=== PATIENT | male | born 1970 | race Two or more races ===

== ENCOUNTER 2024-03-04 17:17 | Emergency (ER) | payer MEDICAID ==
[~2024-03-04] VITALS: Ht 152.4 cm; Wt 85.5 kg
[2024-03-04 20:18] VITALS: BP 124/85; PULSE 63; RESP 16; TEMP 98.2; O2SAT 97
[2024-03-04] MEDS: KETOROLAC TROMETH 60MG/2ML VIAL IM ONE (20:24)
== END 2024-03-04 23:38 | disposition home or self-care (01) ==
LOC: ER 17:17
DX: S16.1XXA Strain of muscle, fascia and tendon at neck level, initial encounter (principal); S13.4XXA Sprain of ligaments of cervical spine, initial encounter; V89.2XXA Person injured in unspecified motor-vehicle accident, traffic, initial encounter; Y93.I9 Activity, other involving external motion; Y92.89 Other specified places as the place of occurrence of the external cause; Y99.8 Other external cause status
CPT/HCPCS: 72040; 72070; 96372; 99284; J1885

== ENCOUNTER 2025-01-08 15:24 | Emergency (ER) | payer MEDICAID ==
[~2025-01-08] VITALS: Ht 172.7 cm; Wt 87.3 kg
--- NOTE | 2025-01-08 16:11 | ED.PDOC ---
Eye-HPI HPI Comments 54 y/o M, with no prior medical history presents to the ED for CC of earache. Patient states, he has been experiencing left ear pain x3days. Patient denies trauma, hearing loss, discharge, or sore-throat. No other symptoms or modifying factors present at this time. Chief Complaint: Earache Time Seen by MD: 15:50 Primary Care Provider: NONE Reviewed Notes: Nurses Notes, Medications, Allergies Allergies: Coded Allergies: NO KNOWN ALLERGIES (Unverified , 06/11/16) Information Source: Patient Mode of Arrival: Ambulatory Timing: Days Duration: Since onset Prehospital treatment: None Lids: Normal Conjunctiva: Normal Cornea: Normal Pupils: Normal EOM: Normal Fundus: Normal Slit lamp exam: Normal Anterior chamber: Normal Mouth: Normal ENT Ear Exam: Normal Nose: Normal Sinuses: Normal Oropharynx: Normal Onset: Spontaneous Throat Exposed to: None History of: None Last Tetanus: Unknown Associated signs and symptoms: None Past Medical History PAST MEDICAL HISTORY: Denies Surgical History: Denies all surgeries Social History Smoker: Non-Smoker Alcohol: Denies ETOH Use Drugs: Denies Drug Use Lives In: Home Constitutional: denies: chills, diaphoresis, fatigue, fever, malaise, sweats, w eakness, others EENTM: reports: ear pain; denies: blurred vision, double vision, ear bleeding, ear discharge, ear drainage, ear ringing, eye pain, eye redness, hearing loss, mouth pain, mouth swelling, nasal discharge, nose bleeding, nose congestion, nose pain, photophobia, tearing, throat pain, throat swelling, voice changes, others Respiratory: denies: cough, hemoptysis, orthopnea, SOB at rest, shortness of breath, SOB with excertion, stridor, wheezing, others Cardiovascular: denies: chest pain, dizzy spells, diaphoresis, Dyspnea on exertion, edema, irregular heart beat, left arm pain, lightheadedness, palpitations, PND, syncope, others Gastrointestinal: denies: abdomen distended, abdominal pain, blood streaked bowels, constipated, diarrhea, dysphagia, difficulty swallowing, hematemesis, melena, nausea, poor appetite, poor fluid intake, rectal bleeding, rectal pain, vomiting, others Genitourinary: denies: burning, dysuria, flank pain, frequency, hematuria, incontinence, penile discharge, penile sore, pain, testicle pain, testicle swelling, urgency, others Neurological: denies: dizziness, fainting, headache, left sided numbness, left sided weakness, numbness, paresthesia, pre-existing deficit, right sided numbness, right sided weakness, seizure, speech problems, tingling, tremors, weakness, others Musculoskeletal: denies: back pain, gout, joint pain, joint swelling, muscle pain, muscle stiffness, neck pain, others Integumetry: denies: bruises, change in color, change in hair/nails, dryness, laceration, lesions, lumps, rash, wounds, others Allergic/Immunocompromised: denies: Difficulty Healing, Frequent Infections, Hives, Itching, others Hematologic/Lymphatic: denies: anemia, blood clots, easy bleeding, easy bruising, swollen glands, others Endocrine: denies: excessive hunger, excessive sweating, excessive thirst, excessive urination, flushing, intolerance to cold, intolerance to heat, unexplained weight gain, unexplained weight loss, others Psychiatric: denies: anxiety, bipolar disorder, depression, hopeless, panic disorder, schizophrenia, sleepless, suicidal, others All Other Systems: Reviewed and Negative Physical Exam General Appearance: Mild Distress HEENT: Normal ENT Inspection, PERRL/EOMI, Pharyngeal Erythema, Other (Cerumen both ears pain left mastoid) Neck: Full Range of Motion, Non-Tender, Normal, Normal Inspection Respiratory: Chest Non-Tender, Lungs Clear, No Accessory Muscle Use, No Respiratory Distress, Normal Breath Sounds Cardiovascular: No Edema, No JVD, No Murmur, No Gallop, Normal Peripheral Pulses, Regular Rate/Rhythm Breast Exam: Deferred Gastrointestinal: No Organomegaly, Non Tender, No Pulsatile Mass, Normal Bowel Sounds, Soft Genitalia: Deferred Pelvic: Deferred Rectal: Deferred Extremities: No calf tenderness, Normal capillary refill, Normal inspection, Normal range of motion, Non-tender, No pedal edema 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 Was a procedure done?: No EENT DIFF Eye: N/A Ear: Cerumen Impaction, Otitis Externa, Otitis Media, Other (Mastoiditis) Nose: N/A Mouth: N/A Sore Throat: N/A X-Ray, Labs, Meds, VS Vital Signs Date Time Temp Pulse Resp B/P (MAP) Pulse Ox O2 Delivery O2 Flow Rate FiO2 01/08/25 16:30 98.9 89 16 140/92 (108) 96 98.9 X-Ray, Labs, Meds, VS Comment 54-year-old male came in complaining left ear pain and neck pain Patient has cerumen impaction to both ears and exquisite pain to the left mastoid Time of 1ST Reevaluation: 15:20 Reevaluation 1ST: Unchanged Patient Education/Counseling: Diagnosis, Treatment Family Education/Counseling: No Family Present Departure 1 Departure Time of Disposition: 17:50 Impression: Primary Impression: Impacted cerumen of both ears Additional Impression: Acute mastoiditis of left side Disposition: 01 HOME / SELF CARE / HOMELESS Condition: Fair Additional Instructions: Follow up with your PCP e-Prescriptions Carbamide Peroxide (Debrox) 6.5 % Zeynep 6.5 % OT TID for 5 Days, #5 ML Prov: PERFECTO GALEAS MD 01/08/25 Ibuprofen Micronized (Ibuprofen) 600 Mg Tab 600 MG PO q8 for 5 Days, #15 TAB Prov: PERFECTO GALEAS MD 01/08/25 Cefdinir (Cefdinir) 300 Mg Cap 1 CAP PO BID for 10 Days, #20 CAP Prov: PERFECTO GALEAS MD 01/08/25 Discharged With: Self Critical Care Note Critical Care Time?: No Stability Stability form required: No Heart Score Heart Score: Heart Score Response (Comments) Value History N/A 0 EKG N/A 0 Age 45-64 1 Risk Factors No known risk factors 0 Troponin N/A 0 Total 1 I personally scribed for PERFECTO GALEAS MD ([email or web address]) on 01/08/25 at 16:11. Electronically submitted by Debbie Torres ([email or web address]). PERFECTO GALEAS MD Jan 08, 2025 16:11
[2025-01-08 16:30] VITALS: TEMP 98.9
[2025-01-08] MEDS ORDERED: IBUP1TAB5 PO (17:55)
[2025-01-08] MEDS ORDERED: CARB6.5S44 OT (17:55)
[2025-01-08] MEDS ORDERED: CEFD300C2 PO (17:55)
[2025-01-08 18:13] VITALS: BP 131/80; PULSE 64; RESP 16; O2SAT 97
== END 2025-01-08 18:14 | disposition home or self-care (01) ==
LOC: ER 15:24
DX: H61.23 Impacted cerumen, bilateral (principal); H70.002 Acute mastoiditis without complications, left ear

== ENCOUNTER 2025-06-07 17:26 | Inpatient (IN) | payer MEDICAID ==
[~2025-06-07] VITALS: Ht 157.5 cm; Wt 88.5 kg
[~2025-06-07 17:26] MED LIST: CARB6.5S44 OT; CEFD300C2 PO; IBUP1TAB5 PO
--- NOTE | 2025-06-07 19:14 | ED.PDOC ---
History of Present Illness HPI Comments 54-year-old male presents to the emergency department complaining of 1 month of rectal pain which has worsened over the past 3 days. Patient reports some constipation. Denies hematochezia or melena. No fever or chills. Patient was started on ibuprofen as well as hydrocortisone suppositories with no relief of his pain. REVIEW OF SYSTEMS: General: No fever, no chills, HEENT: No neck pain, no blurred vision Cardiac: No chest pain. No palpitations. Lungs: No shortness of breath, GI: No abdominal pain, no vomiting, positive constipation, positive rectal pain Musculoskeletal: No joint pain , no back pain Skin: No rash, no wound Neuro: No headache, no dizziness, no syncope PHYSICAL EXAM: General: Awake, alert and oriented. No acute distress. Skin: Skin in warm, dry and intact without rashes or lesions. HEENT: The head is normocephalic and atraumatic. Conjunctivae are clear without exudates or hemorrhage. Sclera is non-icteric. Neck: Normal range of motion. No JVD. Cardiac: Regular rate Respiratory: No signs of respiratory distress. No Stridor. : Perianal induration, tenderness, anal swelling. No noted hemorrhoid or re ctal bleeding. Neurological: The patient is awake, alert and oriented to person, place, and time with normal speech. Speech is clear. There is no facial asymmetry. Psychiatric: Appropriate mood and affect. Good judgement and insight. Chief Complaint: Rectal Pain Time Seen by MD: 18:13 Primary Care Provider: FAN Allergies: Coded Allergies: NO KNOWN ALLERGIES (Unverified , 06/11/16) Home Meds Active Scripts Carbamide Peroxide (Debrox) 6.5 % Zeynep, 6.5 % OT TID for 5 Days, #5 ML Prov:PERFECTO GALEAS MD 01/08/25 Ibuprofen Micronized (Ibuprofen) 600 Mg Tab, 600 MG PO q8 for 5 Days, #15 TAB Prov:PERFECTO GALEAS MD 01/08/25 Cefdinir (Cefdinir) 300 Mg Cap, 1 CAP PO BID for 10 Days, #20 CAP Prov:PERFECTO GALEAS MD 01/08/25 Mode of Arrival: Ambulatory Past Medical History PAST MEDICAL HISTORY: Denies Surgical History: Denies all surgeries Social History Smoker: Non-Smoker Alcohol: Denies ETOH Use Drugs: Denies Drug Use Lives In: Home Was a procedure done? Was a procedure done?: No Differential Dx Considerations may include: Perianal abscess, hemorrhoids, tumor/mass, constipation, enlarged prostate, anal fissure, other X-Ray, Labs, Meds, VS Vital Signs Date Time Temp Pulse Resp B/P (MAP) Pulse Ox O2 Delivery O2 Flow Rate FiO2 06/07/25 20:21 Room Air* 0 21 06/07/25 20:18 125 20 123/78 (93) 97 06/07/25 20:12 125 20 123/78 06/07/25 17:30 97.8 122 16 146/93 95 97.8 Lab Test 06/07/25 19:14 Range/Units White Blood Count 12.3 H 4.4-10.8 10^3/uL Red Blood Count 4.87 4.5-5.90 10^6/uL Hemoglobin 15.4 13.5-17.5 g/dL Hematocrit 44.6 41.0-53.0 % Mean Corpuscular Volume 91.5 80.0-100.0 fL Mean Corpuscular Hemoglobin 31.5 28.0-32.0 pg Mean Corpuscular Hemoglobin Concent 34.4 32.0-36.0 g/dL Red Cell Distribution Width 12.5 11.8-14.3 % Platelet Count 377 140-450 10^3/uL Mean Platelet Volume 7.0 6.9-10.8 fL Neutrophils (%) (Auto) 85.7 H 37.0-80.0 % Lymphocytes (%) (Auto) 6.2 L 10.0-50.0 % Monocytes (%) (Auto) 7.4 0.0-12.0 % Eosinophils (%) (Auto) 0.4 0.0-7.0 % Basophils (%) (Auto) 0.3 0.0-2.0 % Neutrophils # (Auto) 10.6 H 1.6-8.6 10 ^3/uL Lymphocytes # (Auto) 0.8 0.4-5.4 10 ^3/uL Monocytes # (Auto) 0.9 0-1.3 10 ^3/uL Eosinophils # (Auto) 0 0-0.8 10 ^3/uL Basophils # (Auto) 0 0-0.2 10 ^3/uL Nucleated Red Blood Cells 0.0 % Sodium Level 141 136-145 mmol/L Potassium Level 3.6 3.5-5.1 mmol/L Chloride Level 101 98-107 mmol/L Carbon Dioxide Level 26 20-31 mmol/L Anion Gap 14 5-15 Blood Urea Nitrogen 15 9-23 mg/dL Creatinine 1.11 0.700-1.30 mg/dL Glomerular Filtration Rate Calc 78 >90 mL/min BUN/Creatinine Ratio 13.5 10.0-20.0 Serum Glucose 117 H 74-106 mg/dL Lactic Acid Level 1.5 0.4-2.0 mmol/L Calcium Level 9.7 8.7-10.4 mg/dL C-Reactive Protein High Sensitivity 15.67 H <1.0 mg/dL Current Medications Medications (Trade) Dose Ordered Sig/Giulia Route Start Time Stop Time Status Last Admin Ketorolac Tromethamine (Toradol Injection) 30 mg ONCE ONCE IV 06/07/25 19:00 06/07/25 19:04 DC 06/07/25 20:17 Morphine Sulfate 2 mg ONCE ONCE IV 06/07/25 19:00 06/07/25 19:04 DC 06/07/25 20:12 Time of 1ST Reevaluation: 19:11 Reevaluation 1ST: Unchanged Patient Education/Counseling: Need For Follow Up Family Education/Counseling: No Family Present SEPSIS Sepsis Screen Date sepsis recognized/suspect: Jun 07, 2025 Time Sepsis recognized/suspect: 1732 Recent Procedure: No On Antibiotic Therapy: No Respiratory Rate >20: No Heart Rate >90: Yes Temp<36 C (96.8 F) or >38.3 C: No SBP <90 or MAP <65 mmHG: No New Acute Mental Status Change: No Is the patient on CPAP, BIPAP,: No Physician Orders Saline Lock (06/07/25 19:00) Ct Ab Pel With Iv Con Only (06/07/25 19:00) Vital Signs Date Time Temp Pulse Resp B/P (MAP) Pulse Ox O2 Delivery O2 Flow Rate FiO2 06/07/25 20:21 Room Air* 0 21 06/07/25 20:18 125 20 123/78 (93) 97 06/07/25 20:12 125 20 123/78 06/07/25 17:30 97.8 122 16 146/93 95 97.8 Laboratory Tests Test 06/07/25 19:14 Lactic Acid Level 1.5 mmol/L (0.4-2.0) White Blood Count 12.3 10^3/uL (4.4-10.8) H Medications Medications Dose Ordered Sig/Giulia Route Start Time Stop Time Status Last Admin Dose Admin Ketorolac Tromethamine 30 mg ONCE ONCE IV 06/07/25 19:00 06/07/25 19:04 DC 06/07/25 20:17 Morphine Sulfate 2 mg ONCE ONCE IV 06/07/25 19:00 06/07/25 19:04 DC 06/07/25 20:12 Departure 1 Departure Time of Disposition: 21:29 Impression: Primary Impression: Perianal abscess Disposition: ADMITTED INPATIENT Condition: Stable Comments MDM: 54-year-old male with a perianal abscess Antibiotics initiated in the ED Patient is stabilized in the ED Patient admitted to hospitalist service for surgical consultation, further treatment, evaluation and monitoring. Extensive evaluation was performed in attempt to identify or rule out: (See differential diagnosis section) The following tests were ordered, and results were reviewed by me and discussed with patient: (See diagnostic results section) The following test were independently interpreted by me: N/A I reviewed and agreed with the following test results read by other providers: CT abdomen and pelvis I reviewed the following notes from the pt's past medical encounters: N/A Additional information was gathered from interviewing the following independent historians: N/A Discussion of management or test interpretation with external physician/other qualified health care associate: N/A Addressed an acute or chronic illness that poses a threat to life or bodily function: Perianal abscess Decision regarding hospitalization or escalation of hospital level of care: Risk and benefits of admission for further treatment of patient's condition was considered. Due to patient's current clinical condition, high risk of decline and poor outcome if discharged and need for further inpatient management and monitoring, patient will be admitted to the hospital. Drug therapy requiring intensive monitoring for toxicity: IV contrast Parenteral controlled substances: IV morphine Decision regarding elective major surgery with identified patient or procedure risk factors: Yes Critical Care Note Critical Care Time?: No Stability Stability form required: No Heart Score Heart Score: Heart Score Response (Comments) Value History N/A 0 EKG N/A 0 Age N/A 0 Risk Factors N/A 0 Troponin N/A 0 Total 0 TAYLOR IBRAHIM MD Jun 07, 2025 19:14
[2025-06-07 19:39] LABS: Hematocrit 44.6 % (41.0-53.0); Hemoglobin 15.4 g/dL (13.5-17.5); Mean Corpuscular Hemoglobin 31.5 pg (28.0-32.0); Mean Corpuscular Volume 91.5 fL (80.0-100.0); Nucleated Red Blood Cells % 0.0 %
[2025-06-07 19:48] LABS: Chloride 101 mmol/L (98-107); Potassium 3.6 mmol/L (3.5-5.1); Sodium 141 mmol/L (136-145)
[2025-06-07 19:49] LABS: Anion Gap 14 (5-15); Carbon Dioxide 26 mmol/L (20-31)
[2025-06-07 19:50] LABS: Calcium 9.7 mg/dL (8.7-10.4)
[2025-06-07 19:54] LABS: BUN/Creatinine Ratio 13.5 (10.0-20.0); Blood Urea Nitrogen 15 mg/dL (9-23)
[2025-06-07 19:59] LABS: Glucose 117 mg/dL (74-106)
[2025-06-07] MEDS: MORPHINE SULFATE INJ 2 MG/ml SYRG IV ONE (20:12)
[2025-06-07] MEDS: KETOROLAC TROMETH 30 MG/ML 1ML VIAL IV ONE (20:17)
[2025-06-07] MEDS: IOHEXOL 300 MG/ML 100ML BOTTLE IJ ONE (21:16)
--- NOTE | 2025-06-07 21:20 | DVH ---
COMPUTERIZED TOMOGRAPHY ABDOMEN AND PELVIS WITH CONTRAST REASON FOR EXAM: Rectal pain, constipation, include entire anus COMPARISON: None TECHNIQUE: The exam was performed on a Multidetector scanner. Spiral scans were acquired from the diaphragm to the symphysis pubis after administration of IV contrast. 2-D coronal and sagittal reformatted images were provided. Radiation optimization: All CT scans at this facility use at least one of these dose optimization techniques: Automated exposure control mA and/or kV adjustment per patient size (includes targeted exams where dose is matched to clinical indication) or iterative reconstruction. CONTRAST ADMINISTRATION: 100 mL omnipaque 300 intravenously RADIATION DOSE: CTDI: 18.01 mGy DLP: 2101.98 mGy-cm FINDINGS: Respiratory motion degrades evaluation. There is no pleural effusion. There is no pericardial effusion. The spleen is not enlarged. The liver is normal in size and contour. Evaluation is further degraded by streak artifact from the patient's right arm. The portal vein is patent. No gross abnormality of the gallbladder is identified. No gross abnormality of the pancreas is identified. The adrenal glands are grossly unremarkable. The kidneys are similar in size. The kidneys enhance symmetrically. There is no hydronephrosis of either kidney. There is no abdominal aortic aneurysm. The urinary bladder is unremarkable. The prostate and seminal vesicles are within normal limits. No free fluid is identified in the abdomen or pelvis. The colonic stool burden is overall small to moderate. The appendix is normal. There is no distention of the small bowel. No pathologic lymphadenopathy is identified by size criteria. There is an approximately 2.9 x 2.4 x 3.1 cm perianal abscess that involves approximately the posterior half of the anal sphincter. The abscess may insinuate between the internal and external anal sphincters at approximately 6:00 according to the clock face in lithotomy position. There is a single tiny focus of gas within the abscess. No acute osseous abnormality is identified. IMPRESSION: Posterior perianal abscess as described above.
[2025-06-07] MEDS: SODIUM CHLORIDE 0.9% 1,000 ML IV ONE ×3 (21:57→23:25)
[2025-06-07] MEDS: PIPERACILLIN-TAZOB 3.375GM 100 ML IV ONE (22:02)
--- NOTE | 2025-06-07 22:38 | DVHHPRES ---
History of Present Illness Resident Creating Document: HERBER DEL REAL History of Present Illness Patient is a Slovenian-speaking 54-year-old male with past medical history of hyperlipidemia, GERD, presented to [facility] ED with complaint of rectal pain for the past month. The pain is described as sharp, 10/10 in intensity, and has been persistent since onset. The patient reports that he cannot sit for long periods due to the pain. He also notes severe constipation for the past four days. He denies hematochezia, melena, fever, or chills. On evaluation in the ED, patient is afebrile, tachycardic, other vitals are stable. Initial labs show significant WBC 12.3, serum glucose 117 and CRP 15.67. Abdominal CT shows an approximately 2.9 x 2.4 x 3.1 cm perianal abscess that involves approximately the posterior half of the anal sphincter. The patient was placed NPO, started on IV antibiotics and IV fluids. Patient is admitted for further evaluation and management. Cardiovascular: hyperipidemia GI: GERD Past Surgical History: None Family History: None Smoke: No ALCOHOL: none Drugs: None Review of Systems Review of Systems Eyes: No Pain, No Vision change, No Conjunctivae inflammation, No Eyelid inflammation, No Other, No Redness ENT: No Ear pain, No Ear discharge, No Nose pain, No Nose discharge, No Nose congestion, No Mouth pain, No Mouth swelling, No Throat pain, No Throat swelling, No Other Cardiovascular: No Chest Pain, No Palpitations, No Orthopnea, No Paroxysmal No Dyspnea, No Edema, No Lt Headedness, No Other Respiratory: No Cough, No Dry, No Shortness of breath, No SOB with exertion, No Wheezing, No Hemoptysis, No Pleuritic Pain, No Sputum, No Other Gastrointestinal: No Nausea, No Vomiting, No Abdominal Pain, No Diarrhea, Constipation, No Melena, No Hematochezia, No Other Genitourinary: Anal pain. No Dysuria, No Frequency, No Incontinence, No Hematuria, No Retention, No Other Musculoskeletal: No other, No neck pain, No shoulder pain, No arm pain, No back pain, No hand pain, No leg pain, No foot pain Skin: No Rash, No Lesions, No Jaundice, No Bruising, No Other Allergies: Coded Allergies: NO KNOWN ALLERGIES (Unverified , 06/11/16) Exam Vital Signs Vital Signs Date Time Temp Pulse Resp B/P (MAP) Pulse Ox O2 Delivery O2 Flow Rate FiO2 06/07/25 20:21 Room Air* 0 21 06/07/25 20:18 125 20 123/78 (93) 97 06/07/25 17:30 97.8 97.8 Exam General Appearance: Mild to moderate distress. Well developed. Well nourished. NAD Head Exam: Normal inspection Neck Exam: Normal inspection. Non-tender. Normal alignment Pulmonary/Respiratory: Chest non-tender. Clear bilateral breath sounds, no crackles, no wheezing. Cardiovascular/Chest: Regular rate and rhythm. No murmurs. No JVD. Peripheral Pulses: 2+ Radial (R). 2+ Radial (L). 2+ Pedal (R). 2+ Pedal (L) Abdominal Exam: Abdominal distension. Normal bowel sounds. Soft. normal abdomen, no visible veins, Nontender. No hepatospenomegaly. No masses Ankle Exam: Negative ankle edema Lower extremities: Negative lower extremity edema Neuro/Mental Status: A&O x4. Coherent. Thoughts/Psych: Normal thought pattern. Appropriate mood and affect. Good judgement and insight Skin Exam: Normal inspection. Normal color. Warm. Dry /Perianal: Perianal induration and tenderness noted with visible anal swelling. No external hemorrhoids or rectal bleeding observed. Rectal Exam: Palpable mass present with associated tenderness. No active bleeding or drainage. Labs/Xrays Labs Test 06/07/25 19:14 Range/Units White Blood Count 12.3 H 4.4-10.8 10^3/uL Red Blood Count 4.87 4.5-5.90 10^6/uL Hemoglobin 15.4 13.5-17.5 g/dL Hematocrit 44.6 41.0-53.0 % Mean Corpuscular Volume 91.5 80.0-100.0 fL Mean Corpuscular Hemoglobin 31.5 28.0-32.0 pg Mean Corpuscular Hemoglobin Concent 34.4 32.0-36.0 g/dL Red Cell Distribution Width 12.5 11.8-14.3 % Platelet Count 377 140-450 10^3/uL Mean Platelet Volume 7.0 6.9-10.8 fL Neutrophils (%) (Auto) 85.7 H 37.0-80.0 % Lymphocytes (%) (Auto) 6.2 L 10.0-50.0 % Monocytes (%) (Auto) 7.4 0.0-12.0 % Eosinophils (%) (Auto) 0.4 0.0-7.0 % Basophils (%) (Auto) 0.3 0.0-2.0 % Neutrophils # (Auto) 10.6 H 1.6-8.6 10 ^3/uL Lymphocytes # (Auto) 0.8 0.4-5.4 10 ^3/uL Monocytes # (Auto) 0.9 0-1.3 10 ^3/uL Eosinophils # (Auto) 0 0-0.8 10 ^3/uL Basophils # (Auto) 0 0-0.2 10 ^3/uL Nucleated Red Blood Cells 0.0 % Sodium Level 141 136-145 mmol/L Potassium Level 3.6 3.5-5.1 mmol/L Chloride Level 101 98-107 mmol/L Carbon Dioxide Level 26 20-31 mmol/L Anion Gap 14 5-15 Blood Urea Nitrogen 15 9-23 mg/dL Creatinine 1.11 0.700-1.30 mg/dL Glomerular Filtration Rate Calc 78 >90 mL/min BUN/Creatinine Ratio 13.5 10.0-20.0 Serum Glucose 117 H 74-106 mg/dL Lactic Acid Level 1.5 0.4-2.0 mmol/L Calcium Level 9.7 8.7-10.4 mg/dL C-Reactive Protein High Sensitivity 15.67 H <1.0 mg/dL SEPSIS Sepsis Screen Date sepsis recognized/suspect: Jun 07, 2025 Time Sepsis recognized/suspect: 2019 Recent Procedure: No On Antibiotic Therapy: No Respiratory Rate >20: No Heart Rate >90: Yes Temp<36 C (96.8 F) or >38.3 C: No SBP <90 or MAP <65 mmHG: No New Acute Mental Status Change: No Is the patient on CPAP, BIPAP,: No Physician Orders Saline Lock (06/07/25 19:00) Ct Ab Pel With Iv Con Only (06/07/25 19:00) * Surgical Consult (06/07/25 ) Sodium Chloride 0.9% (06/07/25 21:45) Vital Signs Date Time Temp Pulse Resp B/P (MAP) Pulse Ox O2 Delivery O2 Flow Rate FiO2 06/07/25 20:21 Room Air* 0 21 06/07/25 20:18 125 20 123/78 (93) 97 06/07/25 20:12 125 20 123/78 06/07/25 17:30 97.8 122 16 146/93 95 97.8 Laboratory Tests Test 06/07/25 19:14 Lactic Acid Level 1.5 mmol/L (0.4-2.0) White Blood Count 12.3 10^3/uL (4.4-10.8) H Medications Medications Dose Ordered Sig/Giulia Route Start Time Stop Time Status Last Admin Dose Admin Ketorolac Tromethamine 30 mg ONCE ONCE IV 06/07/25 19:00 06/07/25 19:04 DC 06/07/25 20:17 30 MG Morphine Sulfate 2 mg ONCE ONCE IV 06/07/25 19:00 06/07/25 19:04 DC 06/07/25 20:12 2 MG Piperacillin Sod/ Tazobactam Sod 100 ml @ 100 mls/hr ONCE ONCE IV 06/07/25 21:30 06/07/25 22:29 DC 06/07/25 22:02 100 MLS/HR Sodium Chloride 1,000 ml @ 1,000 mls/hr Q1H ONCE IV 06/07/25 21:45 06/07/25 22:44 06/07/25 21:57 1,000 MLS/HR Assessment/Plan Assessment/Plan Sepsis due to posterior perianal abscess Abdomen/Pelvis CT: There is an approximately 2.9 x 2.4 x 3.1 cm perianal abscess that involves approximately the posterior half of the anal sphincter. The abscess may insinuate between the internal and external anal sphincters at approximately 6:00 according to the clock face in lithotomy position. There is a single tiny focus of gas within the abscess. No acute osseous abnormality is identified. Chest X-ray: No radiographic evidence of acute cardiopulmonary process. Surgical consult NPO PT/PTT Type and screen pain management with Tylenol, [place] and Dilaudid Zosyn extended infusion IV q8h IV NS 1,000 MLS/HR one IV NS 125 MLS/HR one Hepatic panel Blood culture UA and UDS Severe constipation Lactulose 30 ML PO bid prn Dulcolax 10 MG PO once MiraLAX 17 GM PO once Acute urinary retention Bladder scan: 576ml urine Riley catheter GERD Pantoprazole 40 MG IV daily Diet: NPO PUD prophylaxis: Protonix 40mg Goals of care: Full code, discussed for >30 minutes on 06/07/25 Plan discussed with patient Plan discussed with Dr. Hou Plan discussed with: Patient Date of Service: Jun 07, 2025 Billing Provider: KP HOU MD Common Visit Codes: [id number] INP/OBS CARE (HIGH) Secondary Visit Codes: [id number] CARE PLAN 30 MINUTES HERBER DEL REAL RESIDENT Jun 07, 2025 22:38
[2025-06-07] MEDS ORDERED: ACETAMINOPHEN 325 MG TAB PO PRN (22:45)
[2025-06-07] MEDS: POLYETHYLENE GLYCOL 17 GM PWDR PO ONE (23:13)
[2025-06-07] MEDS: BISACODYL 5 MG EC TAB PO ONE (23:13)
--- NOTE | 2025-06-07 23:21 | DVH ---
CHEST RADIOGRAPH REASON FOR EXAM: chest pain COMPARISON: None TECHNIQUE: One view of the chest is provided FINDINGS: The cardiomediastinal silhouette is within normal limits for technique. There is no focal airspace disease. There is no significant pleural effusion. No acute bony abnormality is identified. IMPRESSION: No radiographic evidence of acute cardiopulmonary process.
[2025-06-07 23:25] LABS: INR 1.02 (0.9-1.15); Partial Thromboplastin Time 30.5 SEC (24.5-34.5); Prothrombin Time 10.8 sec (9.3-11.8)
[2025-06-07] MEDS: PANTOPRAZOLE 40 MG/10 ML VIAL INJ IV ONE (23:26)
[2025-06-07 23:27] LABS: Alanine Aminotransferase 26.0 U/L (7-40); Albumin 4.7 g/dL (3.2-4.8); Alkaline Phosphatase 102.0 U/L (46-116); Bilirubin, Direct 0.3 mg/dL (<0.3); Bilirubin, Total 0.8 mg/dL (0.2-1.0); Total Protein 7.8 g/dL (5.7-8.2)
[2025-06-08 00:55] VITALS: BP 138/82; PULSE 104; RESP 19; TEMP 97.7; O2SAT 96
[2025-06-08] MEDS: HYDROmorphone HCL 2 MG/ML VL/or syr IV PRN (01:06)
[2025-06-08 05:00] VITALS: BP 140/91; PULSE 114; RESP 19; TEMP 98.4; O2SAT 96
[2025-06-08 06:10] LABS: Hematocrit 40.1 % (41.0-53.0); Hemoglobin 14.2 g/dL (13.5-17.5); Mean Corpuscular Hemoglobin 32.3 pg (28.0-32.0); Mean Corpuscular Volume 91.4 fL (80.0-100.0); Nucleated Red Blood Cells % 0.0 %
[2025-06-08] MEDS: PIPERACILLIN-TAZOB 3.375GM 100 ML IV SCH (06:12)
[2025-06-08 06:30] LABS: Alanine Aminotransferase 23 U/L (7-40); Alkaline Phosphatase 95 U/L (46-116); Anion Gap 15 (5-15); BUN/Creatinine Ratio 16.9 (10.0-20.0); Blood Urea Nitrogen 14 mg/dL (9-23); Calcium 9.4 mg/dL (8.7-10.4); Carbon Dioxide 24 mmol/L (20-31); Chloride 103 mmol/L (98-107); Potassium 3.8 mmol/L (3.5-5.1); Sodium 142 mmol/L (136-145); Total Protein 7.7 g/dL (5.7-8.2)
[2025-06-08 06:31] LABS: Albumin 4.6 g/dL (3.2-4.8); Bilirubin, Total 1.1 mg/dL (0.2-1.0); Glucose 122 mg/dL (74-106)
[2025-06-08 08:20] VITALS: BP 114/71; PULSE 103; RESP 16; TEMP 97.8; O2SAT 93
--- NOTE | 2025-06-08 08:44 | DVHINCON2 ---
Date of service: Jun 08, 2025 Reason for Consultation perianal abscess History of Present Illness HPI 54-year-old male presented to [facility] ED with complaint of rectal pain for the past month. The pain is described as sharp, 10/10 in intensity, and has been persistent since onset. The patient reports that he cannot sit for long periods due to the pain. He also notes severe constipation for the past four days. Home Meds Active Scripts Carbamide Peroxide (Debrox) 6.5 % Zeynep, 6.5 % OT TID for 5 Days, #5 ML Prov:PERFECTO GALEAS MD 01/08/25 Ibuprofen Micronized (Ibuprofen) 600 Mg Tab, 600 MG PO q8 for 5 Days, #15 TAB Prov:PERFECTO GALEAS MD 01/08/25 Cefdinir (Cefdinir) 300 Mg Cap, 1 CAP PO BID for 10 Days, #20 CAP Prov:PERFECTO GALEAS MD 01/08/25 Past Medical History Cardiac: No pertinent Hx Pulmonary: No pertinent Hx Central Nervous System: No pertinent Hx GI: No pertinent Hx Hemotology/Oncology: No pertinent Hx Hepatobiliary: No pertinent Hx Psychiatric: No pertinent Hx Musculoskeletal: No pertinent Hx Rheumotologic: No pertinent Hx Infectious Disease: No peritnent Hx ENT: No pertinent Hx Renal/: No pertinent Hx Endocrine: No pertinent Hx Dermatology: No pertinent Hx Past Surgical History: No pertinent Hx Patient Family History: Patient reports no known family medical history. Smoker: No Hx (Negative) Alocohol: None Drugs: None Lives with: With family Review of Systems Constitutional: No symptom reported Ears, Nose, & Throat: No symptom reported Eyes: No symptom reported Pulmonary/Respiratory: No symptom reported Cardiovascular: No symptom reported Gastrointestinal: No symptom reported Genitourinary: Retention Musculoskeletal: No symptom reported Skin: No symptom reported Psychiatric: No symptom reported Endocrine: No symptom reported Hemotologic/Lymphatic: No symptom reported H&P Exam Vital Signs Vital Signs Date Time Temp Pulse Resp B/P (MAP) Pulse Ox O2 Delivery O2 Flow Rate FiO2 06/08/25 05:00 98.4 114 19 140/91 (107) 96 98.4 06/08/25 00:55 Room Air* 0 21 General Appeara: Well developed, Well nourished Head Exam: Normal inspection Neck Exam: Normal inspection Pulmonary/Respiratory: Normal inspection Cardiovascular/Chest: Normal inspection Abdominal Exam: Normal bowel sounds 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 hearing, Normal speech, PERRL Neuro/Mental St: Alert, Oriented Appearance: Appropriate appearance Eye contact/ Speech: Cooperative Thoughts/Psych: Normal thought pattern Labs/Xrays Labs Test 06/08/25 05:16 06/07/25 19:14 Range/Units White Blood Count 11.5 H 4.4-10.8 10^3/uL Red Blood Count 4.39 L 4.5-5.90 10^6/uL Hemoglobin 14.2 13.5-17.5 g/dL Hematocrit 40.1 #L 41.0-53.0 % Mean Corpuscular Volume 91.4 80.0-100.0 fL Mean Corpuscular Hemoglobin 32.3 H 28.0-32.0 pg Mean Corpuscular Hemoglobin Concent 35.4 32.0-36.0 g/dL Red Cell Distribution Width 12.7 11.8-14.3 % Platelet Count 330 140-450 10^3/uL Mean Platelet Volume 7.1 6.9-10.8 fL Neutrophils (%) (Auto) 84.3 H 37.0-80.0 % Lymphocytes (%) (Auto) 6.9 L 10.0-50.0 % Monocytes (%) (Auto) 8.3 0.0-12.0 % Eosinophils (%) (Auto) 0.3 0.0-7.0 % Basophils (%) (Auto) 0.2 0.0-2.0 % Neutrophils # (Auto) 9.7 H 1.6-8.6 10 ^3/uL Lymphocytes # (Auto) 0.8 0.4-5.4 10 ^3/uL Monocytes # (Auto) 1.0 0-1.3 10 ^3/uL Eosinophils # (Auto) 0 0-0.8 10 ^3/uL Basophils # (Auto) 0 0-0.2 10 ^3/uL Nucleated Red Blood Cells 0.0 % Sodium Level 142 136-145 mmol/L Potassium Level 3.8 3.5-5.1 mmol/L Chloride Level 103 98-107 mmol/L Carbon Dioxide Level 24 20-31 mmol/L Anion Gap 15 5-15 Blood Urea Nitrogen 14 9-23 mg/dL Creatinine 0.83 0.700-1.30 mg/dL Glomerular Filtration Rate Calc 103 >90 mL/min BUN/Creatinine Ratio 16.9 10.0-20.0 Serum Glucose 122 H 74-106 mg/dL Lactic Acid Level 1.6 0.4-2.0 mmol/L Calcium Level 9.4 8.7-10.4 mg/dL Total Bilirubin 1.1 H 0.2-1.0 mg/dL Aspartate Amino Transferase (AST) 24 13-40 U/L Alanine Aminotransferase (ALT) 23 7-40 U/L Alkaline Phosphatase 95 46-116 U/L Total Protein 7.7 5.7-8.2 g/dL Albumin 4.6 3.2-4.8 g/dL Prothrombin Time 10.8 9.3-11.8 sec Prothrombin Time INR 1.02 0.9-1.15 Activated Partial Thromboplast Time 30.5 24.5-34.5 SEC Direct Bilirubin 0.3 <0.3 mg/dL C-Reactive Protein High Sensitivity 15.67 H <1.0 mg/dL Assessment/Plan Problem List: (1) Urinary retention (2) Perianal abscess Plan notes, labs and image reports reviewed patient complaint of perianal pain and unable to urinate Plan: deep intersphincteric abscess , continue with IV antibiotics treat urinary retention with Riley catheter keep NPO reevaluate in [address] Kenney agrees with plan Plan discussed with: Patient Visit Coding Surgery Date of Service if different f: Jun 08, 2025 Billing Provider: BRANDI KENNEY MD Surgery Visit Codes: [id number] - INP CONSULT <80 MIN MIGUELITO BROWN HAT IRONER Jun 08, 2025 08:44
[2025-06-08] MEDS: PANTOPRAZOLE 40 MG/10 ML VIAL INJ IV SCH (09:35)
[2025-06-08 12:55] VITALS: BP 129/81; PULSE 106; RESP 18; TEMP 98.9; O2SAT 96
[2025-06-08] MEDS: HYDROcodone-ACET 5/325MG TAB PO PRN (13:53)
--- NOTE | 2025-06-08 15:45 | DVHPNRES ---
Progress Note Date Seen: Jun 08, 2025 Resident Creating Document: DONALD JARAMILLO Medical Necessity Reason Pt with a Central, PICC or Fol: No Subjective Review of Systems Patient is a Setswana-speaking 54-year-old male with past medical history of hyperlipidemia, GERD, presented to [facility] ED with complaint of rectal pain for the past month. The pain is described as sharp, 10/10 in intensity, and has been persistent since onset. The patient reports that he cannot sit for long periods due to the pain. He also notes severe constipation for the past four days. He denies hematochezia, melena, fever, or chills. On evaluation in the ED, patient is afebrile, tachycardic, other vitals are stable. Initial labs show significant WBC 12.3, serum glucose 117 and CRP 15.67. Abdominal CT shows an approximately 2.9 x 2.4 x 3.1 cm perianal abscess that involves approximately the posterior half of the anal sphincter. Cardiovascular: hyperipidemia GI: GERD Past Surgical History: None Family History: None Smoke: No ALCOHOL: none Drugs: None Objective vital signs Vital Sign Date Time Temp Pulse Resp B/P (MAP) Pulse Ox O2 Delivery O2 Flow Rate FiO2 06/08/25 12:55 98.9 106 18 129/81 (97) 96 98.9 06/08/25 00:55 Room Air* 0 21 Total Intake and Output 06/07/25 06/07/25 06/08/25 15:00 23:00 07:00 Intake Total 1100 ml 0 ml Balance 1100 ml 0 ml medications Current Medications Medications Dose Ordered Sig/Giulia Route Start Time Stop Time Status Last Admin Dose Admin Acetaminophen/ Hydrocodone Bitart 1 tab Q4HP PRN PO 06/07/25 22:45 Acetaminophen 650 mg Q6HP PRN PO 06/07/25 22:45 Pantoprazole Sodium 40 mg DAILY IV 06/08/25 10:00 06/08/25 09:35 40 MG Lactulose 30 ml BIDPRN PRN PO 06/07/25 22:45 Hydromorphone HCl 0.5 mg Q4HPRN PRN IV 06/07/25 22:45 06/08/25 11:03 0.5 MG Piperacillin Sod/ Tazobactam Sod 100 ml @ 25 mls/hr Q8HR IV 06/08/25 06:00 06/08/25 06:12 25 MLS/HR Examination General Appearance: Mild to moderate distress. Well developed. Well nourished. NAD Head Exam: Normal inspection Neck Exam: Normal inspection. Non-tender. Normal alignment Pulmonary/Respiratory: Chest non-tender. Clear bilateral breath sounds, no crackles, no wheezing. Cardiovascular/Chest: Regular rate and rhythm. No murmurs. No JVD. Peripheral Pulses: 2+ Radial (R). 2+ Radial (L). 2+ Pedal (R). 2+ Pedal (L) Abdominal Exam: Abdominal distension. Normal bowel sounds. Soft. normal abdomen, no visible veins, Nontender. No hepatospenomegaly. No masses Ankle Exam: Negative ankle edema Lower extremities: Negative lower extremity edema Neuro/Mental Status: A&O x4. Coherent. Thoughts/Psych: Normal thought pattern. Appropriate mood and affect. Good judgement and insight Skin Exam: Normal inspection. Normal color. Warm. Dry /Perianal: Perianal induration and tenderness noted with visible anal swelling. No external hemorrhoids or rectal bleeding observed. Rectal Exam: Palpable mass present with associated tenderness. No active bleeding or drainage. laboratory and microbiology Laboratory Tests 06/08/25 05:16 Test 06/08/25 05:16 Range/Units Serum Glucose 122 H 74-106 mg/dL Problem List/Assessment/Plan Problem List/Assessment/Plan Assessment/Plan Sepsis due to posterior perianal abscess Abdomen/Pelvis CT: There is an approximately 2.9 x 2.4 x 3.1 cm perianal abscess that involves approximately the posterior half of the anal sphincter. The abscess may insinuate between the internal and external anal sphincters at approximately 6:00 according to the clock face in lithotomy position. There is a single tiny focus of gas within the abscess. No acute osseous abnormality is identified. Chest X-ray: No radiographic evidence of acute cardiopulmonary process. Surgical consult- advised IV antibiotics, reassess for surgical intervention in 48 hours. NPO PT/PTT Type and screen pain management with Tylenol, [place] and Dilaudid Zosyn extended infusion IV q8h IV NS 1,000 MLS/HR one IV NS 125 MLS/HR one Hepatic panel Blood culture UA and UDS Severe constipation Lactulose 30 ML PO bid prn Dulcolax 10 MG PO once MiraLAX 17 GM PO once Acute urinary retention, resolved Bladder scan: 576ml urine Riley catheter GERD Pantoprazole 40 MG IV daily Diet: NPO PUD prophylaxis: Protonix 40mg Goals of care: Full code Plan discussed with patient Plan discussed with Dr. Garcia Plan discussed with: Patient My Orders My Orders Orders - DONALD JARAMILLO Procedure Category Date Status Time Complete Blood Count LAB 06/09/25 Verified 04:00 Comprehensive LAB 06/09/25 Verified Metabolic Panel 04:00 Npo (Nothing By DIET 06/08/25 Transmitted Mouth) Diet Dinner Date of Service: Jun 08, 2025 Billing Provider: DALIA GARCIA MD Common Visit Codes: [id number] INP/OBS CARE(HIGH) DONALD JARAMILLO Jun 08, 2025 15:45 DALIA GARCIA MD Jun 08, 2025 16:16
[2025-06-08] MEDS: SODIUM CHLORIDE 0.9% 1,000 ML IV ONE (15:56)
[2025-06-08 16:10] VITALS: BP 134/72; PULSE 108; RESP 18; TEMP 99.7; O2SAT 95
[2025-06-08 21:00] VITALS: BP 145/92; PULSE 94; RESP 18; TEMP 98.5; O2SAT 97
[2025-06-08] MEDS: KETOROLAC TROMETH 30 MG/ML 1ML VIAL IV PRN (22:14)
[2025-06-09] VITALS (8 sets, daily range): BP systolic 113–121; BP diastolic 63–90; PULSE 82–107; RESP 18–20; TEMP 98.1–99.1; O2SAT 93–96
[2025-06-09 01:07] LABS: Urine Protein, UAD 1+ (Negative)
[2025-06-09 02:28] LABS: Opiate Scree,Urine Neg (NEGATIVE)
[2025-06-09 02:29] LABS: Amphetamine Screen, Urine Neg (NEGATIVE); Barbiturate Scree,Urine Neg (NEGATIVE); Benzodiazephine Screen, Urine Neg (NEGATIVE); Cannabinoid Screen, Urine Neg (NEGATIVE); Phencyclidine Screen, Urine Neg (NEGATIVE)
[2025-06-09 03:08] LABS: Cocaine Screen, Urine Neg (NEGATIVE)
[2025-06-09] MEDS: KETOROLAC TROMETH 30 MG/ML 1ML VIAL IV ONE (05:17)
[2025-06-09 05:49] LABS: Hematocrit 36.8 % (41.0-53.0); Hemoglobin 13.0 g/dL (13.5-17.5); Mean Corpuscular Hemoglobin 31.9 pg (28.0-32.0); Mean Corpuscular Volume 90.6 fL (80.0-100.0); Nucleated Red Blood Cells % 0.1 %
[2025-06-09 06:10] LABS: Alanine Aminotransferase 23 U/L (7-40); Albumin 4.1 g/dL (3.2-4.8); Alkaline Phosphatase 107 U/L (46-116); Anion Gap 12 (5-15); BUN/Creatinine Ratio 15.0 (10.0-20.0); Bilirubin, Total 1.1 mg/dL (0.2-1.0); Blood Urea Nitrogen 12 mg/dL (9-23); Calcium 9.3 mg/dL (8.7-10.4); Carbon Dioxide 26 mmol/L (20-31); Chloride 102 mmol/L (98-107); Sodium 140 mmol/L (136-145); Total Protein 7.0 g/dL (5.7-8.2)
[2025-06-09 06:13] LABS: Glucose 112 mg/dL (74-106); Potassium 3.3 mmol/L (3.5-5.1)
[2025-06-09] MEDS: D5W/SOD CHLO 0.9% 1,000 ML IV ONE (09:00)
[2025-06-09] MEDS: POTASSIUM CHL 20 Meq TABLET PO ONE (10:15)
--- NOTE | 2025-06-09 13:46 | DVHPNRES ---
Progress Note Date Seen: Jun 09, 2025 Resident Creating Document: DONALD JARAMILLO Medical Necessity Reason Pt with a Central, PICC or Fol: No Subjective Review of Systems Patient seen at bedside. Complains of anal pain. On IV antibiotics. We will reassess tomorrow. Patient is a Latvian-speaking 54-year-old male with past medical history of hyperlipidemia, GERD, presented to [facility] ED with complaint of rectal pain for the past month. The pain is described as sharp, 10/10 in intensity, and has been persistent since onset. The patient reports that he cannot sit for long periods due to the pain. He also notes severe constipation for the past four days. He denies hematochezia, melena, fever, or chills. On evaluation in the ED, patient is afebrile, tachycardic, other vitals are stable. Initial labs show significant WBC 12.3, serum glucose 117 and CRP 15.67. Abdominal CT shows an approximately 2.9 x 2.4 x 3.1 cm perianal abscess that involves approximately the posterior half of the anal sphincter. Cardiovascular: hyperipidemia GI: GERD Past Surgical History: None Family History: None Smoke: No ALCOHOL: none Drugs: None Objective vital signs Vital Sign Date Time Temp Pulse Resp B/P (MAP) Pulse Ox O2 Delivery O2 Flow Rate FiO2 06/09/25 09:00 98.1 82 20 114/74 (87) 95 98.1 06/09/25 08:00 Room Air* 0 21 Total Intake and Output 06/08/25 06/08/25 06/09/25 15:00 23:00 07:00 Intake Total 500 ml Output Total 900 ml 650 ml Balance -900 ml -150 ml medications Current Medications Medications Dose Ordered Sig/Giulia Route Start Time Stop Time Status Last Admin Dose Admin Acetaminophen/ Hydrocodone Bitart 1 tab Q4HP PRN PO 06/07/25 22:45 Hold Acetaminophen 650 mg Q6HP PRN PO 06/07/25 22:45 Pantoprazole Sodium 40 mg DAILY IV 06/08/25 10:00 06/09/25 10:15 40 MG Lactulose 30 ml BIDPRN PRN PO 06/07/25 22:45 Hydromorphone HCl 0.5 mg Q4HPRN PRN IV 06/07/25 22:45 Hold 06/08/25 11:03 0.5 MG Piperacillin Sod/ Tazobactam Sod 100 ml @ 25 mls/hr Q8HR IV 06/08/25 06:00 06/09/25 05:17 25 MLS/HR Ketorolac Tromethamine 15 mg Q8HP PRN IV 06/08/25 16:00 06/13/25 15:59 06/08/25 22:14 15 MG Morphine Sulfate 2 mg Q4HPRN PRN IV 06/09/25 12:00 Examination General Appearance: Mild to moderate distress. Well developed. Well nourished. NAD Head Exam: Normal inspection Neck Exam: Normal inspection. Non-tender. Normal alignment Pulmonary/Respiratory: Chest non-tender. Clear bilateral breath sounds, no crackles, no wheezing. Cardiovascular/Chest: Regular rate and rhythm. No murmurs. No JVD. Peripheral Pulses: 2+ Radial (R). 2+ Radial (L). 2+ Pedal (R). 2+ Pedal (L) Abdominal Exam: Abdominal distension. Normal bowel sounds. Soft. normal abdomen, no visible veins, Nontender. No hepatospenomegaly. No masses Ankle Exam: Negative ankle edema Lower extremities: Negative lower extremity edema Neuro/Mental Status: A&O x4. Coherent. Thoughts/Psych: Normal thought pattern. Appropriate mood and affect. Good judgement and insight Skin Exam: Normal inspection. Normal color. Warm. Dry /Perianal: Perianal induration and tenderness noted with visible anal swelling. No external hemorrhoids or rectal bleeding observed. Rectal Exam: Palpable mass present with associated tenderness. No active bleeding or drainage. laboratory and microbiology Laboratory Tests 06/09/25 04:36 Test 06/09/25 04:36 Range/Units Serum Glucose 112 H 74-106 mg/dL Microbiology Date/Time Source Procedure Growth Status 06/07/25 23:20 Blood Blood Culture - Preliminary NO GROWTH AFTER 24 HOURS OF INCUBATION. Resulted Problem List/Assessment/Plan Problem List/Assessment/Plan Assessment/Plan Sepsis due to posterior perianal abscess Abdomen/Pelvis CT: There is an approximately 2.9 x 2.4 x 3.1 cm perianal abscess that involves approximately the posterior half of the anal sphincter. The abscess may insinuate between the internal and external anal sphincters at approximately 6:00 according to the clock face in lithotomy position. There is a single tiny focus of gas within the abscess. No acute osseous abnormality is identified. Chest X-ray: No radiographic evidence of acute cardiopulmonary process. Surgical consult- advised IV antibiotics, reassess for surgical intervention in 48 hours. NPO PT/PTT Type and screen pain management with Tylenol, [place] and Dilaudid Zosyn extended infusion IV q8h IV NS 1,000 MLS/HR one IV NS 125 MLS/HR one Hepatic panel Blood culture UA and UDS Severe constipation Lactulose 30 ML PO bid prn Dulcolax 10 MG PO once MiraLAX 17 GM PO once Acute urinary retention, resolved Bladder scan: 576ml urine Riley catheter GERD Pantoprazole 40 MG IV daily Diet: NPO PUD prophylaxis: Protonix 40mg Goals of care: Full code Plan discussed with patient Plan discussed with Dr. Garcia Plan discussed with: Patient My Orders My Orders Orders - DONALD JARAMILLO Procedure Category Date Status Time Npo (Nothing By DIET 06/08/25 Transmitted Mouth) Diet Dinner Date of Service: Jun 09, 2025 Billing Provider: DALIA GARCIA MD Common Visit Codes: [id number] INP/OBS CARE(HIGH) DONALD JARAMILLO Jun 09, 2025 13:46 DALIA GARCIA MD Jun 09, 2025 22:34
--- NOTE | 2025-06-09 15:02 | DVHPN2 ---
Subjective Date Seen: Jun 09, 2025 Post op day Post op day: 0 Objective Vitals Vital Sign Date Time Temp Pulse Resp B/P (MAP) Pulse Ox O2 Delivery O2 Flow Rate FiO2 06/09/25 13:00 98.5 91 18 121/68 (85) 95 98.5 06/09/25 08:00 Room Air* 0 21 Total Intake and Output 06/08/25 06/08/25 06/09/25 15:00 23:00 07:00 Intake Total 500 ml Output Total 900 ml 650 ml Balance -900 ml -150 ml Medications Current Medications Medications Dose Ordered Sig/Giulia Route Start Time Stop Time Status Last Admin Dose Admin Acetaminophen/ Hydrocodone Bitart 1 tab Q4HP PRN PO 06/07/25 22:45 Hold Acetaminophen 650 mg Q6HP PRN PO 06/07/25 22:45 Pantoprazole Sodium 40 mg DAILY IV 06/08/25 10:00 06/09/25 10:15 40 MG Lactulose 30 ml BIDPRN PRN PO 06/07/25 22:45 Hydromorphone HCl 0.5 mg Q4HPRN PRN IV 06/07/25 22:45 Hold 06/08/25 11:03 0.5 MG Piperacillin Sod/ Tazobactam Sod 100 ml @ 25 mls/hr Q8HR IV 06/08/25 06:00 06/09/25 05:17 25 MLS/HR Ketorolac Tromethamine 15 mg Q8HP PRN IV 06/08/25 16:00 06/13/25 15:59 06/08/25 22:14 15 MG Morphine Sulfate 2 mg Q4HPRN PRN IV 06/09/25 12:00 Labs and Microbiology Laboratory Tests 06/09/25 04:36 Test 06/09/25 04:36 Range/Units Serum Glucose 112 H 74-106 mg/dL Ass/Plan Problem List Assessment/Plan Sepsis due to posterior perianal abscess Abdomen/Pelvis CT: There is an approximately 2.9 x 2.4 x 3.1 cm perianal abscess that involves approximately the posterior half of the anal sphincter. The abscess may insinuate between the internal and external anal sphincters at approximately 6:00 according to the clock face in lithotomy position. There is a single tiny focus of gas within the abscess. No acute osseous abnormality is identified. Chest X-ray: No radiographic evidence of acute cardiopulmonary process. Surgical consult- advised IV antibiotics, reassess for surgical intervention in 48 hours. NPO PT/PTT Type and screen pain management with Tylenol, [place] and Dilaudid Zosyn extended infusion IV q8h IV NS 1,000 MLS/HR one IV NS 125 MLS/HR one Hepatic panel Blood culture UA and UDS Severe constipation Lactulose 30 ML PO bid prn Dulcolax 10 MG PO once MiraLAX 17 GM PO once Acute urinary retention, resolved Bladder scan: 576ml urine Riley catheter GERD Pantoprazole 40 MG IV daily Diet: NPO PUD prophylaxis: Protonix 40mg Goals of care: Full code Plan discussed with patient Plan discussed with Dr. Devlin Assessment/Plan - Experiences severe, intermittent pain. no improvement from yesterday Plan: - Will continue with the current treatment plan schedule for incision and drainage of perianal abscess tomorrow Prognosis: Good Plan discussed with Dr. Kenney Visit Coding Surgery Date of Service if different f: Jun 09, 2025 Billing Provider: BRANDI KENNEY MD Surgery Visit Codes: [id number] INP/OBS CARE(HIGH) MIGUELITO BROWN NP Jun 09, 2025 15:02
[2025-06-09] MEDS: MORPHINE SULFATE INJ 2 MG/ml SYRG IV PRN (20:22)
[2025-06-10] VITALS (10 sets, daily range): BP systolic 114–137; BP diastolic 69–92; PULSE 79–101; RESP 14–97; TEMP 97.5–99.1; O2SAT 92–97
[2025-06-10 07:16] LABS: Hematocrit 37.3 % (41.0-53.0); Hemoglobin 13.0 g/dL (13.5-17.5); Mean Corpuscular Hemoglobin 31.5 pg (28.0-32.0); Mean Corpuscular Volume 90.6 fL (80.0-100.0); Nucleated Red Blood Cells % 0.0 %
[2025-06-10 07:19] LABS: Anion Gap 11 (5-15); Carbon Dioxide 28 mmol/L (20-31); Chloride 102 mmol/L (98-107); Sodium 141 mmol/L (136-145)
[2025-06-10 07:20] LABS: Calcium 8.8 mg/dL (8.7-10.4)
[2025-06-10 07:25] LABS: BUN/Creatinine Ratio 13.9 (10.0-20.0); Blood Urea Nitrogen 11 mg/dL (9-23)
[2025-06-10 07:26] LABS: Glucose 113 mg/dL (74-106); Potassium 3.3 mmol/L (3.5-5.1)
[2025-06-10] MEDS ORDERED: KETOROLAC TROMETH 30 MG/ML 1ML VIAL ONE (09:22)
[2025-06-10] MEDS ORDERED: ONDANSETRON HCL 4 MG/2 ML VIAL ONE (09:22)
[2025-06-10] MEDS ORDERED: fentaNYL CITRATE 100 MCG/2 ML VL ONE (09:22)
[2025-06-10] MEDS ORDERED: KETAMINE 50mg/ML 1ml syringe ONE (09:22)
[2025-06-10] MEDS ORDERED: GLYCOPYRROLATE 0.2 MG/ML 1ML VIAL ONE (09:22)
[2025-06-10] MEDS ORDERED: PROPOFOL 10 MG/ML 20 ML IV ONE (09:22)
[2025-06-10] MEDS ORDERED: LIDOCAINE 2% (LOCAL ANESTH.) PF 5ml SDV ONE (09:22)
[2025-06-10] MEDS ORDERED: SUGAMMADEX 200mg/2ml Vial (100MG/ML) IV ONE (09:26)
[2025-06-10] MEDS ORDERED: ROCURONIUM 10MG/ML 10ML VIAL IV ONE (09:26)
[2025-06-10] MEDS ORDERED: SODIUM CHLORIDE LOCK 30 ML ONE (09:34)
[2025-06-10] MEDS: BUPIVACAINE HCL 0.25% P/F 10 ML VIAL ONE (10:32)
[2025-06-10] MEDS: LIDOCAINE W/ EPINEPHRINE 1% 20ML VIAL ONE (10:32)
[2025-06-10] MEDS: GELATIN 1 SPONGE SIZE 100 TOP ONE (10:33)
[2025-06-10] MEDS: ACETAMINOPHEN IV 1000 MG/100ML (10MG/ML) IV ONE (11:00)
[2025-06-10] MEDS ORDERED: ceFAZolin 1GM VL ONE (11:22)
[2025-06-10] MEDS ORDERED: ESMOLOL HCL 10 ML IV ONE (11:24)
--- NOTE | 2025-06-10 11:55 | DVHOP ---
DATE OF SURGERY: 06/10/2025 PREOPERATIVE DIAGNOSIS: Perianal abscess. POSTOPERATIVE DIAGNOSIS: Perianal abscess. SURGEON: Chano Kenney MD SPINNING FRAME TENDER: George Bob. ANESTHESIA: General endotracheal, Conor Rubin. PROCEDURE: Incision and drainage of pus from perianal abscess. DESCRIPTION OF PROCEDURE: The patient under general endotracheal anesthesia in a jackknife position prone on the operating room table with the skin prepped and draped. An incision was made over the visible palpable bulge in the skin of the perineal area and incision yielded frankly purulent material which was sent for cultures and sensitivities. The cavity of the abscess was probed and subsequently irrigated with 1 liter of sterile irrigation containing antibiotic solution. The patient's operation was finished with the patient stable in the operating room. No family members were present in the waiting room. MD ZAIDA Peguero/GUILLE TID: [id number] RECEIPT: [id number]
[2025-06-10] MEDS ORDERED: fentaNYL CITRATE 100 MCG/2 ML VL IV PRN (12:00)
[2025-06-10] MEDS ORDERED: ONDANSETRON HCL 4 MG/2 ML VIAL IV PRN (12:00)
[2025-06-10] MEDS ORDERED: NALOXONE HCL 0.4 MG/ML VIAL IV PRN (12:00)
[2025-06-10] MEDS ORDERED: FLUMAZENIL 0.1 MG/ML INJ 10ML MDV IV PRN (12:00)
[2025-06-10] MEDS ORDERED: HYDROmorphone HCL 2 MG/ML VL/or syr IV PRN (12:00)
[2025-06-10] MEDS ORDERED: hydrALAZINE HCL 20 MG/ML VL IV PRN (12:00)
[2025-06-10] MEDS: GABAPENTIN 300 MG CAP PO ONE (12:30)
[2025-06-10] MEDS: CELECOXIB 100 MG CAP PO ONE (12:31)
--- NOTE | 2025-06-10 15:33 | DVHPNRES ---
Progress Note Date Seen: Jun 10, 2025 Resident Creating Document: DONALD JARAMILLO Medical Necessity Reason Pt with a Central, PICC or Fol: No Subjective Review of Systems Patient seen at bedside. Scheduled for I and D today. Patient is a Indonesian-speaking 54-year-old male with past medical history of hyperlipidemia, GERD, presented to [facility] ED with complaint of rectal pain for the past month. The pain is described as sharp, 10/10 in intensity, and has been persistent since onset. The patient reports that he cannot sit for long periods due to the pain. He also notes severe constipation for the past four days. He denies hematochezia, melena, fever, or chills. On evaluation in the ED, patient is afebrile, tachycardic, other vitals are stable. Initial labs show significant WBC 12.3, serum glucose 117 and CRP 15.67. Abdominal CT shows an approximately 2.9 x 2.4 x 3.1 cm perianal abscess that involves approximately the posterior half of the anal sphincter. Cardiovascular: hyperipidemia GI: GERD Past Surgical History: None Family History: None Smoke: No ALCOHOL: none Drugs: None Objective vital signs Vital Sign Date Time Temp Pulse Resp B/P (MAP) Pulse Ox O2 Delivery O2 Flow Rate FiO2 06/10/25 12:36 97.5 89 17 128/80 (96) 92 97.5 06/10/25 11:55 Room Air 0 95 Total Intake and Output 06/09/25 06/09/25 06/10/25 15:00 23:00 07:00 Intake Total 25 ml 50 ml 100 ml Output Total 400 ml 350 ml Balance 25 ml -350 ml -250 ml medications Current Medications Medications Dose Ordered Sig/Giulia Route Start Time Stop Time Status Last Admin Dose Admin Acetaminophen/ Hydrocodone Bitart 1 tab Q4HP PRN PO 06/07/25 22:45 Hold Acetaminophen 650 mg Q6HP PRN PO 06/07/25 22:45 Pantoprazole Sodium 40 mg DAILY IV 06/08/25 10:00 06/10/25 09:16 40 MG Lactulose 30 ml BIDPRN PRN PO 06/07/25 22:45 Hydromorphone HCl 0.5 mg Q4HPRN PRN IV 06/07/25 22:45 Hold 06/08/25 11:03 0.5 MG Piperacillin Sod/ Tazobactam Sod 100 ml @ 25 mls/hr Q8HR IV 06/08/25 06:00 06/10/25 14:16 25 MLS/HR Ketorolac Tromethamine 15 mg Q8HP PRN IV 06/08/25 16:00 06/13/25 15:59 06/09/25 23:30 15 MG Morphine Sulfate 2 mg Q4HPRN PRN IV 06/09/25 12:00 06/10/25 09:17 2 MG Oxycodone HCl 10 mg ONCE PRN PO 06/10/25 12:00 06/10/25 18:00 Examination General Appearance: Mild to moderate distress. Well developed. Well nourished. NAD Head Exam: Normal inspection Neck Exam: Normal inspection. Non-tender. Normal alignment Pulmonary/Respiratory: Chest non-tender. Clear bilateral breath sounds, no crackles, no wheezing. Cardiovascular/Chest: Regular rate and rhythm. No murmurs. No JVD. Peripheral Pulses: 2+ Radial (R). 2+ Radial (L). 2+ Pedal (R). 2+ Pedal (L) Abdominal Exam: Abdominal distension. Normal bowel sounds. Soft. normal abdomen, no visible veins, Nontender. No hepatospenomegaly. No masses Ankle Exam: Negative ankle edema Lower extremities: Negative lower extremity edema Neuro/Mental Status: A&O x4. Coherent. Thoughts/Psych: Normal thought pattern. Appropriate mood and affect. Good judgement and insight Skin Exam: Normal inspection. Normal color. Warm. Dry /Perianal: Perianal induration and tenderness noted with visible anal swelling. No external hemorrhoids or rectal bleeding observed. Rectal Exam: Palpable mass present with associated tenderness. No active bleeding or drainage. laboratory and microbiology Laboratory Tests 06/10/25 05:43 Test 06/10/25 05:43 Range/Units Serum Glucose 113 H 74-106 mg/dL Microbiology Date/Time Source Procedure Growth Status 06/07/25 23:20 Blood Blood Culture - Preliminary NO GROWTH AFTER 48 HOURS OF INCUBATION. Resulted Problem List/Assessment/Plan Problem List/Assessment/Plan Assessment/Plan Sepsis due to posterior perianal abscess I&D today Abdomen/Pelvis CT: There is an approximately 2.9 x 2.4 x 3.1 cm perianal abscess that involves approximately the posterior half of the anal sphincter. The abscess may insinuate between the internal and external anal sphincters at approximately 6:00 according to the clock face in lithotomy position. There is a single tiny focus of gas within the abscess. No acute osseous abnormality is identified. Chest X-ray: No radiographic evidence of acute cardiopulmonary process. Surgical consult- advised IV antibiotics, reassess for surgical intervention in 48 hours. NPO PT/PTT Type and screen pain management with Tylenol, [place] and Dilaudid Zosyn extended infusion IV q8h IV NS 1,000 MLS/HR one IV NS 125 MLS/HR one Hepatic panel Blood culture UA and UDS Severe constipation Lactulose 30 ML PO bid prn Dulcolax 10 MG PO once MiraLAX 17 GM PO once Acute urinary retention, resolved Bladder scan: 576ml urine Riley catheter GERD Pantoprazole 40 MG IV daily Diet: NPO PUD prophylaxis: Protonix 40mg Goals of care: Full code Plan discussed with patient Plan discussed with Dr. Garcia Plan discussed with: Patient My Orders My Orders Orders - DONALD JARAMILLO Procedure Category Date Status Time Complete Blood Count LAB 06/11/25 Verified 04:00 Comprehensive LAB 06/11/25 Verified Metabolic Panel 04:00 Date of Service: Jun 10, 2025 Billing Provider: DALIA GARCIA MD Common Visit Codes: [id number] INP/OBS CARE(HIGH) DONALD JARAMILLO RESIDENT Jun 10, 2025 15:33 DALIA GARCIA MD Jun 10, 2025 23:57
[2025-06-11 06:30] LABS: Hematocrit 38.5 % (41.0-53.0); Hemoglobin 13.6 g/dL (13.5-17.5); Mean Corpuscular Hemoglobin 31.9 pg (28.0-32.0); Mean Corpuscular Volume 90.1 fL (80.0-100.0); Nucleated Red Blood Cells % 0.0 %
[2025-06-11 06:39] LABS: Alanine Aminotransferase 35 U/L (7-40); Albumin 3.9 g/dL (3.2-4.8); Alkaline Phosphatase 133 U/L (46-116); Anion Gap 12 (5-15); BUN/Creatinine Ratio 20.5 (10.0-20.0); Blood Urea Nitrogen 17 mg/dL (9-23); Calcium 9.2 mg/dL (8.7-10.4); Carbon Dioxide 26 mmol/L (20-31); Chloride 104 mmol/L (98-107); Glucose 145 mg/dL (74-106); Potassium 3.9 mmol/L (3.5-5.1); Sodium 142 mmol/L (136-145); Total Protein 6.8 g/dL (5.7-8.2)
[2025-06-11 06:40] LABS: Bilirubin, Total 0.5 mg/dL (0.2-1.0)
[2025-06-11 08:00] VITALS: O2SAT 96
[2025-06-11 09:00] VITALS: BP 113/78; PULSE 68; RESP 20; TEMP 97.7; O2SAT 93
--- NOTE | 2025-06-11 11:31 | DVHPN2 ---
Progress Note Date Seen: Jun 11, 2025 Medical Necessity Reason Pt with a Central, PICC or Fol: No Objective vital signs Vital Sign Date Time Temp Pulse Resp B/P (MAP) Pulse Ox O2 Delivery O2 Flow Rate FiO2 06/11/25 09:00 97.7 68 20 113/78 (90) 93 97.7 06/11/25 08:00 Room Air* 0 21 Total Intake and Output 06/10/25 06/10/25 06/11/25 15:00 23:00 07:00 Intake Total 300 ml 550 ml Output Total 500 ml 450 ml Balance -200 ml 100 ml medications Current Medications Medications Dose Ordered Sig/Giulia Route Start Time Stop Time Status Last Admin Dose Admin Acetaminophen/ Hydrocodone Bitart 1 tab Q4HP PRN PO 06/07/25 22:45 Hold Acetaminophen 650 mg Q6HP PRN PO 06/07/25 22:45 Pantoprazole Sodium 40 mg DAILY IV 06/08/25 10:00 06/11/25 09:45 40 MG Lactulose 30 ml BIDPRN PRN PO 06/07/25 22:45 Hydromorphone HCl 0.5 mg Q4HPRN PRN IV 06/07/25 22:45 Hold 06/08/25 11:03 0.5 MG Piperacillin Sod/ Tazobactam Sod 100 ml @ 25 mls/hr Q8HR IV 06/08/25 06:00 06/11/25 06:50 25 MLS/HR Ketorolac Tromethamine 15 mg Q8HP PRN IV 06/08/25 16:00 06/13/25 15:59 06/09/25 23:30 15 MG Morphine Sulfate 2 mg Q4HPRN PRN IV 06/09/25 12:00 06/10/25 09:17 2 MG laboratory and microbiology Laboratory Tests 06/11/25 04:39 Test 06/11/25 04:39 Range/Units Serum Glucose 145 H 74-106 mg/dL Problem List/Assessment/Plan Problem List/Assessment/Plan 06/11/25 "huge improvement" since before operation, afebrile , will advance po intake, could be discharged home with instructions to do sitz bath tid. Plan discussed with: Patient Dietary Evaluation Review Comments: Monitor PO intake, lab values, weight trend, and I/O Expected Outcomes/Goals: GI symptoms to improve FU 5-7 days BRANDI MCCARTY MD Jun 11, 2025 11:31
[2025-06-11 12:31] VITALS: BP 126/67; PULSE 71; RESP 20; TEMP 97.8; O2SAT 91
--- NOTE | 2025-06-11 16:41 | DVHPNRES ---
Progress Note Date Seen: Jun 11, 2025 Resident Creating Document: DONALD JARAMILLO Medical Necessity Reason Pt with a Central, PICC or Fol: No Subjective Review of Systems Patient was seen at bedside. Reports of improvement in symptoms since the procedure. WBCs elevated(13k). plan for discharge tomorrow. Patient is a German-speaking 54-year-old male with past medical history of hyperlipidemia, GERD, presented to [facility] ED with complaint of rectal pain for the past month. The pain is described as sharp, 10/10 in intensity, and has been persistent since onset. The patient reports that he cannot sit for long periods due to the pain. He also notes severe constipation for the past four days. He denies hematochezia, melena, fever, or chills. On evaluation in the ED, patient is afebrile, tachycardic, other vitals are stable. Initial labs show significant WBC 12.3, serum glucose 117 and CRP 15.67. Abdominal CT shows an approximately 2.9 x 2.4 x 3.1 cm perianal abscess that involves approximately the posterior half of the anal sphincter. Cardiovascular: hyperipidemia GI: GERD Past Surgical History: None Family History: None Smoke: No ALCOHOL: none Drugs: None Objective vital signs Vital Sign Date Time Temp Pulse Resp B/P (MAP) Pulse Ox O2 Delivery O2 Flow Rate FiO2 06/11/25 12:31 97.8 71 20 126/67 (86) 91 97.8 06/11/25 08:00 Room Air* 0 21 Total Intake and Output 06/10/25 06/10/25 06/11/25 14:59 22:59 06:59 Intake Total 300 ml 550 ml Output Total 500 ml 450 ml Balance -200 ml 100 ml medications Current Medications Medications Dose Ordered Sig/Giulia Route Start Time Stop Time Status Last Admin Dose Admin Acetaminophen/ Hydrocodone Bitart 1 tab Q4HP PRN PO 06/07/25 22:45 Hold Acetaminophen 650 mg Q6HP PRN PO 06/07/25 22:45 Pantoprazole Sodium 40 mg DAILY IV 06/08/25 10:00 06/11/25 09:45 40 MG Lactulose 30 ml BIDPRN PRN PO 06/07/25 22:45 Hydromorphone HCl 0.5 mg Q4HPRN PRN IV 06/07/25 22:45 Hold 06/08/25 11:03 0.5 MG Piperacillin Sod/ Tazobactam Sod 100 ml @ 25 mls/hr Q8HR IV 06/08/25 06:00 06/11/25 14:17 25 MLS/HR Ketorolac Tromethamine 15 mg Q8HP PRN IV 06/08/25 16:00 06/13/25 15:59 06/09/25 23:30 15 MG Morphine Sulfate 2 mg Q4HPRN PRN IV 06/09/25 12:00 06/10/25 09:17 2 MG Examination General Appearance: Mild to moderate distress. Well developed. Well nourished. NAD Head Exam: Normal inspection Neck Exam: Normal inspection. Non-tender. Normal alignment Pulmonary/Respiratory: Chest non-tender. Clear bilateral breath sounds, no crackles, no wheezing. Cardiovascular/Chest: Regular rate and rhythm. No murmurs. No JVD. Peripheral Pulses: 2+ Radial (R). 2+ Radial (L). 2+ Pedal (R). 2+ Pedal (L) Abdominal Exam: Abdominal distension. Normal bowel sounds. Soft. normal abdomen, no visible veins, Nontender. No hepatospenomegaly. No masses Ankle Exam: Negative ankle edema Lower extremities: Negative lower extremity edema Neuro/Mental Status: A&O x4. Coherent. Thoughts/Psych: Normal thought pattern. Appropriate mood and affect. Good judgement and insight Skin Exam: Normal inspection. Normal color. Warm. Dry /Perianal: Perianal induration and tenderness noted with visible anal swelling. No external hemorrhoids or rectal bleeding observed. Rectal Exam: Palpable mass present with associated tenderness. No active bleeding or drainage. laboratory and microbiology Laboratory Tests 06/11/25 04:39 Test 06/11/25 04:39 Range/Units Serum Glucose 145 H 74-106 mg/dL Microbiology Date/Time Source Procedure Growth Status 06/10/25 11:20 Other Other Gram Stain Pending Resulted 06/10/25 11:20 Other Other Anaerobic Culture Pending Resulted 06/10/25 11:20 Other Other Aerobic Culture - Preliminary Resulted 06/07/25 23:20 Blood Blood Culture - Preliminary NO GROWTH AFTER 72 HOURS OF INCUBATION. Resulted Problem List/Assessment/Plan Problem List/Assessment/Plan Assessment/Plan Sepsis due to posterior perianal abscess S/P I&D Abdomen/Pelvis CT: There is an approximately 2.9 x 2.4 x 3.1 cm perianal abscess that involves approximately the posterior half of the anal sphincter. The abscess may insinuate between the internal and external anal sphincters at approximately 6:00 according to the clock face in lithotomy position. There is a single tiny focus of gas within the abscess. No acute osseous abnormality is identified. Chest X-ray: No radiographic evidence of acute cardiopulmonary process. Surgical consult- advised IV antibiotics, reassess for surgical intervention in 48 hours. advance diet PT/PTT Type and screen pain management with Tylenol, [place] and Dilaudid Zosyn extended infusion IV q8h IV NS 1,000 MLS/HR one IV NS 125 MLS/HR one Hepatic panel Blood culture UA and UDS Severe constipation Lactulose 30 ML PO bid prn Dulcolax 10 MG PO once MiraLAX 17 GM PO once Acute urinary retention, resolved Bladder scan: 576ml urine Riley catheter GERD Pantoprazole 40 MG IV daily Diet: NPO PUD prophylaxis: Protonix 40mg Goals of care: Full code Plan discussed with patient Plan discussed with Dr. Garcia Plan discussed with: Patient My Orders My Orders Orders - DONALD JARAMILLO Procedure Category Date Status Time Complete Blood Count LAB 06/12/25 Verified 04:00 Comprehensive LAB 06/12/25 Verified Metabolic Panel 04:00 Dietary Evaluation Review Comments: Monitor PO intake, lab values, weight trend, and I/O Expected Outcomes/Goals: GI symptoms to improve FU 5-7 days Date of Service: Jun 11, 2025 Billing Provider: DALIA GARCIA MD Common Visit Codes: [id number] INP/OBS CARE(HIGH) DONALD JARAMILLO Jun 11, 2025 16:41 DALIA GARCIA MD Jun 12, 2025 08:52
[2025-06-11 17:29] VITALS: BP 110/69; PULSE 63; RESP 20; TEMP 97.8; O2SAT 92
[2025-06-11 20:00] VITALS: PULSE 83; RESP 17; O2SAT 94
[2025-06-11 21:00] VITALS: BP 103/60; PULSE 83; RESP 17; TEMP 97.9; O2SAT 94
[2025-06-12] VITALS (8 sets, daily range): BP systolic 113–127; BP diastolic 66–91; PULSE 65–83; RESP 16–20; TEMP 97.5–98.3; O2SAT 91–97
[2025-06-12 06:52] LABS: Hematocrit 38.1 % (41.0-53.0); Hemoglobin 13.6 g/dL (13.5-17.5); Mean Corpuscular Hemoglobin 32.3 pg (28.0-32.0); Mean Corpuscular Volume 90.3 fL (80.0-100.0); Nucleated Red Blood Cells % 0.1 %
[2025-06-12 07:12] LABS: Albumin 3.7 g/dL (3.2-4.8); Alkaline Phosphatase 88 U/L (46-116); Anion Gap 12 (5-15); BUN/Creatinine Ratio 20.3 (10.0-20.0); Bilirubin, Total 0.4 mg/dL (0.2-1.0); Blood Urea Nitrogen 15 mg/dL (9-23); Calcium 9.0 mg/dL (8.7-10.4); Carbon Dioxide 27 mmol/L (20-31); Chloride 105 mmol/L (98-107); Glucose 98 mg/dL (74-106); Sodium 144 mmol/L (136-145); Total Protein 6.6 g/dL (5.7-8.2)
[2025-06-12 07:28] LABS: Potassium 3.3 mmol/L (3.5-5.1)
[2025-06-12 07:30] LABS: Alanine Aminotransferase 54 U/L (7-40)
--- NOTE | 2025-06-12 09:26 | DVHPNRES ---
Progress Note Date Seen: Jun 12, 2025 Resident Creating Document: STEFANIE ROBLES RESIDENT Medical Necessity Reason Pt with a Central, PICC or Fol: No Subjective Review of Systems Patient seen and examined at bedside Notes significant improvement in perineal pain Continues to have some nausea, denies any vomiting. Able to tolerate diet without any complaints. Denies any fever, chills Passed bowel movement, flatus. Ambulating. Pending abscess fluid culture Objective vital signs Vital Sign Date Time Temp Pulse Resp B/P (MAP) Pulse Ox O2 Delivery O2 Flow Rate FiO2 06/12/25 08:49 98.0 65 20 118/66 (83) 91 98.0 06/11/25 20:00 Room Air* 0 21 Total Intake and Output 06/11/25 06/11/25 06/12/25 15:00 23:00 07:00 Intake Total 500 ml 400 ml Output Total 500 ml 900 ml Balance 0 ml -500 ml medications Current Medications Medications Dose Ordered Sig/Giulia Route Start Time Stop Time Status Last Admin Dose Admin Acetaminophen/ Hydrocodone Bitart 1 tab Q4HP PRN PO 06/07/25 22:45 Hold Acetaminophen 650 mg Q6HP PRN PO 06/07/25 22:45 Pantoprazole Sodium 40 mg DAILY IV 06/08/25 10:00 06/11/25 09:45 40 MG Lactulose 30 ml BIDPRN PRN PO 06/07/25 22:45 Hydromorphone HCl 0.5 mg Q4HPRN PRN IV 06/07/25 22:45 Hold 06/08/25 11:03 0.5 MG Piperacillin Sod/ Tazobactam Sod 100 ml @ 25 mls/hr Q8HR IV 06/08/25 06:00 06/12/25 06:27 25 MLS/HR Ketorolac Tromethamine 15 mg Q8HP PRN IV 06/08/25 16:00 06/13/25 15:59 06/09/25 23:30 15 MG Morphine Sulfate 2 mg Q4HPRN PRN IV 06/09/25 12:00 06/10/25 09:17 2 MG Examination General Appearance: No visible distress. Well developed. Well nourished. NAD Pulmonary/Respiratory: Chest non-tender. Clear bilateral breath sounds, no crackles, no wheezing. Cardiovascular/Chest: Regular rate and rhythm. No murmurs. No JVD. Peripheral Pulses: 2+ Pedal (R). 2+ Pedal (L) Abdominal Exam: Normal bowel sounds. Soft. normal abdomen, no visible veins, Nontender. No hepatospenomegaly. No masses Ankle Exam: Negative ankle edema Neuro/Mental Status: A&O x4. Coherent. Thoughts/Psych: Normal thought pattern. Appropriate mood and affect. Good judgement and insight Skin Exam: Normal inspection. Normal color. Warm. Dry laboratory and microbiology Laboratory Tests 06/12/25 06:15 Test 06/12/25 06:15 Range/Units Serum Glucose 98 74-106 mg/dL Microbiology Date/Time Source Procedure Growth Status 06/10/25 11:20 Other Other Gram Stain Pending Resulted 06/10/25 11:20 Other Other Anaerobic Culture Pending Resulted 06/10/25 11:20 Aerobic Culture - Preliminary Escherichia coli Resulted 06/07/25 23:20 Blood Blood Culture - Preliminary NO GROWTH AFTER 72 HOURS OF INCUBATION. Resulted Labs and/or images reviewed: Labs reviewed by me, Image(s) reviewed by me Problem List/Assessment/Plan Problem List/Assessment/Plan Sepsis due to posterior perianal abscess S/P I&D postoperative day 2 Abdomen/Pelvis CT: There is an approximately 2.9 x 2.4 x 3.1 cm perianal abscess that involves approximately the posterior half of the anal sphincter. The abscess may insinuate between the internal and external anal sphincters at approximately 6:00 according to the clock face in lithotomy position. There is a single tiny focus of gas within the abscess. No acute osseous abnormality is identified. Chest X-ray: No radiographic evidence of acute cardiopulmonary process. Tolerating diet pain management with Tylenol, [place] and Dilaudid IV Zosyn Physical therapy Pending abscess fluid culture results Severe constipation Lactulose 30 ML PO bid prn Dulcolax 10 MG PO once MiraLAX 17 GM PO once Acute urinary retention, resolved Bladder scan: 576ml urine Riley catheter dc'ed GERD Pantoprazole 40 MG IV daily Diet: Regular diet Goals of care: Full code Plan discussed with patient Plan discussed with Dr. Devlin Plan discussed with: Patient, Other (RN) My Orders My Orders Orders - STEFANIE ROBLES Procedure Category Date Status Time Docusate Sodium PHA 06/12/25 Verified Capsule (Colace 10:00 D/C Riley CHARISSE 06/12/25 Verified 09:24 Potassium Effervesent PHA 06/12/25 Verified Tab (Klor-Con/Ef) 09:30 Dietary Evaluation Review Comments: Monitor PO intake, lab values, weight trend, and I/O Expected Outcomes/Goals: GI symptoms to improve FU 5-7 days Date of Service: Jun 12, 2025 Billing Provider: DALIA DEVLIN MD Common Visit Codes: [id number] INP/OBS CARE(HIGH) STEFANIE ROBLES RESIDENT Jun 12, 2025 09:25 DALIA DEVLIN MD Jun 12, 2025 22:56
--- NOTE | 2025-06-12 09:51 | DVHPN2 ---
Progress Note Date Seen: Jun 12, 2025 Medical Necessity Reason Pt with a Central, PICC or Fol: No Objective vital signs Vital Sign Date Time Temp Pulse Resp B/P (MAP) Pulse Ox O2 Delivery O2 Flow Rate FiO2 06/12/25 08:49 98.0 65 20 118/66 (83) 91 98.0 06/11/25 20:00 Room Air* 0 21 Total Intake and Output 06/11/25 06/11/25 06/12/25 15:00 23:00 07:00 Intake Total 500 ml 400 ml Output Total 500 ml 900 ml Balance 0 ml -500 ml medications Current Medications Medications Dose Ordered Sig/Giulia Route Start Time Stop Time Status Last Admin Dose Admin Acetaminophen/ Hydrocodone Bitart 1 tab Q4HP PRN PO 06/07/25 22:45 Hold Acetaminophen 650 mg Q6HP PRN PO 06/07/25 22:45 Pantoprazole Sodium 40 mg DAILY IV 06/08/25 10:00 06/11/25 09:45 40 MG Lactulose 30 ml BIDPRN PRN PO 06/07/25 22:45 Hydromorphone HCl 0.5 mg Q4HPRN PRN IV 06/07/25 22:45 Hold 06/08/25 11:03 0.5 MG Piperacillin Sod/ Tazobactam Sod 100 ml @ 25 mls/hr Q8HR IV 06/08/25 06:00 06/12/25 06:27 25 MLS/HR Ketorolac Tromethamine 15 mg Q8HP PRN IV 06/08/25 16:00 06/13/25 15:59 06/09/25 23:30 15 MG Morphine Sulfate 2 mg Q4HPRN PRN IV 06/09/25 12:00 06/10/25 09:17 2 MG Docusate Sodium 100 mg BID PO 06/12/25 10:00 laboratory and microbiology Laboratory Tests 06/12/25 06:15 Test 06/12/25 06:15 Range/Units Serum Glucose 98 74-106 mg/dL Problem List/Assessment/Plan Problem List/Assessment/Plan 06/11/25 "huge improvement" since before operation, afebrile , will advance po intake, could be discharged home with instructions to do sitz bath tid. 06/12/25 DOING SWELL, AFEBRILE, WBC NL, CLEARED FOR DISCHARGE Plan discussed with: Patient Dietary Evaluation Review Comments: Monitor PO intake, lab values, weight trend, and I/O Expected Outcomes/Goals: GI symptoms to improve FU 5-7 days BRANDI MCCARTY MD Jun 12, 2025 09:51
[2025-06-12] MEDS: POTASSIUM EFFERVESENT TAB 25 MEQ PO ONE (09:55)
[2025-06-12] MEDS: DOCUSATE SOD 100 MG CAP PO SCH (09:55)
[2025-06-12] MEDS: LACTULOSE 20Gm/30ML SOLN PO PRN (11:06)
[2025-06-13 01:00] VITALS: BP 121/71; PULSE 64; RESP 17; TEMP 98.2; O2SAT 95
[2025-06-13 05:00] VITALS: BP 131/77; PULSE 71; RESP 17; TEMP 98.3; O2SAT 95
[2025-06-13] MEDS: POTASSIUM EFFERVESENT TAB 25 MEQ PO ONE (06:47)
[2025-06-13 07:40] LABS: Hematocrit 40.1 % (41.0-53.0); Hemoglobin 14.3 g/dL (13.5-17.5); Mean Corpuscular Hemoglobin 31.8 pg (28.0-32.0); Mean Corpuscular Volume 89.5 fL (80.0-100.0)
[2025-06-13 07:41] LABS: Albumin 4.0 g/dL (3.2-4.8); Alkaline Phosphatase 84 U/L (46-116); Anion Gap 11 (5-15); BUN/Creatinine Ratio 15.1 (10.0-20.0); Bilirubin, Total 0.5 mg/dL (0.2-1.0); Blood Urea Nitrogen 13 mg/dL (9-23); Calcium 9.5 mg/dL (8.7-10.4); Carbon Dioxide 28 mmol/L (20-31); Chloride 102 mmol/L (98-107); Glucose 96 mg/dL (74-106); Potassium 3.6 mmol/L (3.5-5.1); Sodium 141 mmol/L (136-145); Total Protein 6.9 g/dL (5.7-8.2)
[2025-06-13 07:45] LABS: Alanine Aminotransferase 73 U/L (7-40)
[2025-06-13 08:00] VITALS: PULSE 72; RESP 16; O2SAT 98
[2025-06-13 08:45] VITALS: BP 122/92; PULSE 65; RESP 16; TEMP 97.5; O2SAT 95
[2025-06-13 09:18] LABS: RBC Morphology Normal; Total Cells Counted 100.0 (100)
--- NOTE | 2025-06-13 10:37 | DVHPN2 ---
Subjective Date Seen: Jun 13, 2025 Post op day Post op day: 3 Objective Vitals Vital Sign Date Time Temp Pulse Resp B/P (MAP) Pulse Ox O2 Delivery O2 Flow Rate FiO2 06/13/25 08:45 97.5 65 16 122/92 (102) 95 97.5 06/13/25 08:00 Room Air* 0 21 Total Intake and Output 06/12/25 06/12/25 06/13/25 15:00 23:00 07:00 Intake Total 600 ml 500 ml Balance 600 ml 500 ml Medications Current Medications Medications Dose Ordered Sig/Giulia Route Start Time Stop Time Status Last Admin Dose Admin Acetaminophen/ Hydrocodone Bitart 1 tab Q4HP PRN PO 06/07/25 22:45 Cancel Acetaminophen 650 mg Q6HP PRN PO 06/07/25 22:45 Pantoprazole Sodium 40 mg DAILY IV 06/08/25 10:00 06/12/25 09:55 40 MG Lactulose 30 ml BIDPRN PRN PO 06/07/25 22:45 06/12/25 11:06 30 ML Piperacillin Sod/ Tazobactam Sod 100 ml @ 25 mls/hr Q8HR IV 06/08/25 06:00 06/13/25 05:11 25 MLS/HR Ketorolac Tromethamine 15 mg Q8HP PRN IV 06/08/25 16:00 06/13/25 15:59 06/09/25 23:30 15 MG Morphine Sulfate 2 mg Q4HPRN PRN IV 06/09/25 12:00 06/10/25 09:17 2 MG Docusate Sodium 100 mg BID PO 06/12/25 10:00 06/12/25 21:19 100 MG Labs and Microbiology Laboratory Tests 06/13/25 05:56 Test 06/13/25 05:56 Range/Units Serum Glucose 96 74-106 mg/dL Ass/Plan Labs and/or images reviewed: Labs reviewed by me, Image(s) reviewed by me Problem List Sepsis due to posterior perianal abscess S/P I&D postoperative day 2 Abdomen/Pelvis CT: There is an approximately 2.9 x 2.4 x 3.1 cm perianal abscess that involves approximately the posterior half of the anal sphincter. The abscess may insinuate between the internal and external anal sphincters at approximately 6:00 according to the clock face in lithotomy position. There is a single tiny focus of gas within the abscess. No acute osseous abnormality is identified. Chest X-ray: No radiographic evidence of acute cardiopulmonary process. Tolerating diet pain management with Tylenol, [place] and Dilaudid IV Zosyn Physical therapy Pending abscess fluid culture results Severe constipation Lactulose 30 ML PO bid prn Dulcolax 10 MG PO once MiraLAX 17 GM PO once Acute urinary retention, resolved Bladder scan: 576ml urine Riley catheter dc'ed GERD Pantoprazole 40 MG IV daily Diet: Regular diet Goals of care: Full code Plan discussed with patient Plan discussed with Dr. Devlin Assessment/Plan - Experiences severe, intermittent pain. no improvement from yesterday Plan: - Will continue with the current treatment plan schedule for incision and drainage of perianal abscess tomorrow 06/13/25 s/p incision and drainage of perianal abscess no new complaints wound no drainage patient sitz baths continue antibiotics follow up in surgery clinic in 7-10 days Prognosis: Good Plan discussed with patient, Dr. Kenney Visit Coding Surgery Date of Service if different f: Jun 13, 2025 Billing Provider: BRANDI KENNEY MD Surgery Visit Codes: [id number] INP/OBS CARE(HIGH) MIGUELITO BROWN [employer]TI[employer] REPA[employer]ER Jun 13, 2025 10:37
[2025-06-13 12:36] VITALS: BP 120/90; PULSE 76; RESP 16; TEMP 97.8; O2SAT 97
[2025-06-13] MEDS ORDERED: CIPR500T4 PO (13:49)
[2025-06-13] MEDS ORDERED: PANT40T PO (14:31)
[2025-06-13] MEDS ORDERED: LACT10SO3 PO (14:31)
--- NOTE | 2025-06-13 15:23 | DVHDSRES ---
Discharge Summary Date of Admission Resident Creating Document: MICHELE HOUSTON Jun 07, 2025 at 22:38 Date of Discharge: Jun 13, 2025 Admitting Diagnosis Sepsis due to perianal abscess Labs/Diagnostic Data: Laboratory Results Test 06/13/25 05:56 06/12/25 06:15 06/09/25 00:30 06/08/25 05:16 White Blood Count 6.4 10^3/uL (4.4-10.8) Red Blood Count 4.48 10^6/uL (4.5-5.90) Hemoglobin 14.3 g/dL (13.5-17.5) Hematocrit 40.1 % (41.0-53.0) Mean Corpuscular Volume 89.5 fL (80.0-100.0) Mean Corpuscular Hemoglobin 31.8 pg (28.0-32.0) Mean Corpuscular Hemoglobin Concent 35.5 g/dL (32.0-36.0) Red Cell Distribution Width 12.7 % (11.8-14.3) Platelet Count 378 10^3/uL (140-450) Mean Platelet Volume 7.1 fL (6.9-10.8) Neutrophils (%) (Auto) % (37.0-80.0) Lymphocytes (%) (Auto) % (10.0-50.0) Monocytes (%) (Auto) % (0.0-12.0) Basophils (%) (Auto) % (0.0-2.0) Neutrophils # (Auto) 10 ^3/uL (1.6-8.6) Lymphocytes # (Auto) 10 ^3/uL (0.4-5.4) Monocytes # (Auto) 10 ^3/uL (0-1.3) Differential Total Cells Counted 100.0 (100) Neutrophils % (Manual) 64 (37.0-80.0) Band Neutrophils % (Manual) 4 Lymphocytes % (Manual) 21 (10.0-50.0) Monocytes % (Manual) 8 (0-12) Eosinophils % (Manual) 3 (0-7) Basophils % (Manual) 0 (0.0-2.0) Metamyelocytes % (manual) 0 Myelocytes % (Manual) 0 Promyelocytes % (Manual) 0 Blast Cells % (Manual) 0 Reactive Lymphocytes 0 Platelet Estimate Adequate Red Blood Cell Morphology Normal Sodium Level 141 mmol/L (136-145) Potassium Level 3.6 mmol/L (3.5-5.1) Chloride Level 102 mmol/L (98-107) Carbon Dioxide Level 28 mmol/L (20-31) Anion Gap 11 (5-15) Blood Urea Nitrogen 13 mg/dL (9-23) Creatinine 0.86 mg/dL (0.700-1.30) Glomerular Filtration Rate Calc 102 mL/min (>90) BUN/Creatinine Ratio 15.1 (10.0-20.0) Serum Glucose 96 mg/dL (74-106) Calcium Level 9.5 mg/dL (8.7-10.4) Total Bilirubin 0.5 mg/dL (0.2-1.0) Aspartate Amino Transferase (AST) 42 U/L (13-40) Alanine Aminotransferase (ALT) 73 U/L (7-40) Alkaline Phosphatase 84 U/L (46-116) Total Protein 6.9 g/dL (5.7-8.2) Albumin 4.0 g/dL (3.2-4.8) Eosinophils (%) (Auto) 1.9 % (0.0-7.0) Eosinophils # (Auto) 0.1 10 ^3/uL (0-0.8) Basophils # (Auto) 0 10 ^3/uL (0-0.2) Nucleated Red Blood Cells 0.1 % Urine Color Yellow (Yellow) Urine Clarity Clear (Clear) Urine pH 6.0 (5.0-9.0) Urine Specific Grand Chain 1.026 (1.001-1.035) Urine Protein 1+ (Negative) Urine Ketones 1+ (Negative) Urine Blood 1+ /uL (Negative) Urine Nitrite Negative (Negative) Urine Bilirubin Negative (Negative) Urine Urobilinogen 4 mg/dL (Negative) Urine Leukocyte Esterase Negative /uL (Negative) Urine RBC 8 /hpf (0 - 3) Urine Microscopic WBC 7 /HPF (0-3) Urine Squamous Epithelial Cells None seen /hpf (<5) Urine Bacteria None seen /hpf (None Seen) Urine Mucus Few (None Seen) Urine Glucose 1+ mg/dL (Normal) Urine Opiates Screen Neg (NEGATIVE) Urine Fentanyl Screen Neg (NEGATIVE) Urine Barbiturates Screen Neg (NEGATIVE) Urine Phencyclidine Screen Neg (NEGATIVE) Urine Amphetamines Screen Neg (NEGATIVE) Urine Benzodiazepines Screen Neg (NEGATIVE) Urine Cocaine Screen Neg (NEGATIVE) Urine Cannabinoids Screen Neg (NEGATIVE) Lactic Acid Level 1.6 mmol/L (0.4-2.0) B-Type Natriuretic Peptide 3.88 pg/mL (0-100) Test 06/07/25 19:14 Prothrombin Time 10.8 sec (9.3-11.8) Prothrombin Time INR 1.02 (0.9-1.15) Activated Partial Thromboplast Time 30.5 SEC (24.5-34.5) Direct Bilirubin 0.3 mg/dL (<0.3) C-Reactive Protein High Sensitivity 15.67 mg/dL (<1.0) Other Laboratory Tests 06/13/25 05:56 Brief Hx & Hospital Course: Patient is a U[place]-speaking 54-year-old male with past medical history of hyperlipidemia, GERD, presented to [facility] ED with complaint of rectal pain for the past month. The pain is described as sharp, 10/10 in intensity, and has been persistent since onset. The patient reports that he cannot sit for long periods due to the pain. He also notes severe constipation for the past four days. He denies hematochezia, melena, fever, or chills. On evaluation in the ED, patient is afebrile, tachycardic, other vitals are stable. Initial labs show significant WBC 12.3, serum glucose 117 and CRP 15.67. Abdominal CT shows an approximately 2.9 x 2.4 x 3.1 cm perianal abscess that involves approximately the posterior half of the anal sphincter. Cardiovascular: hyperipidemia GI: GERD Past Surgical History: None Family History: None Smoke: No ALCOHOL: none Drugs: None General Appearance: Mild to moderate distress. Well developed. Well nourished. NAD Head Exam: Normal inspection Neck Exam: Normal inspection. Non-tender. Normal alignment Pulmonary/Respiratory: Chest non-tender. Clear bilateral breath sounds, no crackles, no wheezing. Cardiovascular/Chest: Regular rate and rhythm. No murmurs. No JVD. Peripheral Pulses: 2+ Radial (R). 2+ Radial (L). 2+ Pedal (R). 2+ Pedal (L) Abdominal Exam: Abdominal distension. Normal bowel sounds. Soft. normal abdomen, no visible veins, Nontender. No hepatospenomegaly. No masses Ankle Exam: Negative ankle edema Lower extremities: Negative lower extremity edema Neuro/Mental Status: A&O x4. Coherent. Thoughts/Psych: Normal thought pattern. Appropriate mood and affect. Good judgement and insight Skin Exam: Normal inspection. Normal color. Warm. Dry /Perianal: Perianal induration and tenderness noted with visible anal swelling. No external hemorrhoids or rectal bleeding observed. Rectal Exam: Palpable mass present with associated tenderness. No active bleeding or drainage. Brief hospital course: Patient came to the hospital with chief complaints of rectal pain since 1 month. Patient was take due to posterior perianal abscess status post I&D. Abdominal CT showed There is an approximately 2.9 x 2.4 x 3.1 cm perianal abscess that involves approximately the posterior half of the anal sphincter. The abscess may insinuate between the internal and external anal sphincters at approximately 6:00 according to the clock face in lithotomy position. There is a single tiny focus of gas within the abscess. No acute osseous abnormality is identified. surgical consult was placed. Who advised IV antibiotics with Zosyn, patient's diet was advanced to regular diet. Pain management was with Tylenol, Farrell, Dilaudid. Blood culture was ordered. Patient has severe constipation for which lactulose 30 mL p.o. b.i.d. p.r.n. was given, Dulcolax 10 mg p.o. once and MiraLAX 17 mg p.o. once was given. Patient had acute urinary retention which resolved bladder scan showed 576 mL urine. Riley's catheter was removed. Patient had do GERD for which pantoprazole 40 mg IV daily was given for POD prophylaxis. patient is stable for discharge and patient understood discharge plan and communicated understanding of his discharge plan. Patient is to follow-up with discharge Clinic in 1 week, patient is to follow-up with surgical clinic in 10 days, patient advised to do Sitz baths. patient is to take ciprofloxacin 500 mg p.o. b.i.d. patient is to do sitz baths follow up in surgery clinic in 7-10 days Operations or Procedures ORDERING PHYSICIAN: TAYLOR IBRAHIM MD PROCEDURE(s): ABPLIV - CT AB PEL WITH IV CON ONLY REASON: Rectal pain, constipation, include entire anus ORDER NUMBER(s): [id number], ACCESSION NUMBER(s): [id number] COMPUTERIZED TOMOGRAPHY ABDOMEN AND PELVIS WITH CONTRAST REASON FOR EXAM: Rectal pain, constipation, include entire anus COMPARISON: None TECHNIQUE: The exam was performed on a Multidetector scanner. Spiral scans were acquired from the diaphragm to the symphysis pubis after administration of IV contrast. 2-D coronal and sagittal reformatted images were provided. Radiation optimization: All CT scans at this facility use at least one of these dose optimization techniques: Automated exposure control mA and/or kV adjustment per patient size (includes targeted exams where dose is matched to clinical indication) or iterative reconstruction. CONTRAST ADMINISTRATION: 100 mL omnipaque 300 intravenously RADIATION DOSE: CTDI: 18.01 mGy DLP: 2101.98 mGy-cm FINDINGS: Respiratory motion degrades evaluation. There is no pleural effusion. There is no pericardial effusion. The spleen is not enlarged. The liver is normal in size and contour. Evaluation is further degraded by streak artifact from the patient's right arm. The portal vein is patent. No gross abnormality of the gallbladder is identified. No gross abnormality of the pancreas is identified. The adrenal glands are grossly unremarkable. The kidneys are similar in size. The kidneys enhance symmetrically. There is no hydronephrosis of either kidney. There is no abdominal aortic aneurysm. The urinary bladder is unremarkable. The prostate and seminal vesicles are within normal limits. No free fluid is identified in the abdomen or pelvis. The colonic stool burden is overall small to moderate. The appendix is normal. There is no distention of the small bowel. No pathologic lymphadenopathy is identified by size criteria. There is an approximately 2.9 x 2.4 x 3.1 cm perianal abscess that involves approximately the posterior half of the anal sphincter. The abscess may insinuate between the internal and external anal sphincters at approximately 6:00 according to the clock face in lithotomy position. There is a single tiny focus of gas within the abscess. No acute osseous abnormality is identified. IMPRESSION: Posterior perianal abscess as described above. RING PHYSICIAN: HERBER DEL REAL PROCEDURE(s): CXR1 - CHEST XRAY 1 VIEW REASON: chest pain ORDER NUMBER(s): [id number], ACCESSION NUMBER(s): [id number] CHEST RADIOGRAPH REASON FOR EXAM: chest pain COMPARISON: None TECHNIQUE: One view of the chest is provided FINDINGS: The cardiomediastinal silhouette is within normal limits for technique. There is no focal airspace disease. There is no significant pleural effusion. No acute bony abnormality is identified. IMPRESSION: No radiographic evidence of acute cardiopulmonary process. ATED BY: GREGG WILKES MD DICTATED DATE/TIME: 06/07/252317 SIGNED BY: GREGG WILKES MD SIGNED DATE/TIME: 06/07/252317 DICTATED BY: GREGG WILKES MD DICTATED DATE/TIME: 06/07/252117 SIGNED BY: GREGG WILKES MD SIGNED DATE/TIME: 06/07/252117 Condition at Discharge: Stable Final Diagnosis/Problems List Sepsis due to posterior perianal abscess S/P I&D Severe constipation Acute urinary retention, resolved GERD morbid obesity BMI 35.7 Discharge Disposition: Home Discharge Instruct/Medications Diet: Regular Activity: No Restrictions, As Tolerated Follow Up/Referral: Follow-up with discharge Clinic in 1 week Follow-up with surgery clinic in days Medications: Take ciprofloxacin 500 mg b.i.d. for 10 days Sitz baths recommended Scheduled Carbamide Peroxide (Debrox), 6.5 % OT TID Cefdinir (Cefdinir), 1 CAP PO BID Ciprofloxacin Hcl (Ciprofloxacin Hcl), 1 TAB PO BID Ibuprofen Micronized (Ibuprofen), 600 MG PO q8 Pantoprazole Sodium Sesquihydr (Pantoprazole Sodium), 40 MG PO DAILY Scheduled PRN Lactulose (Lactulose), 30 ML PO BIDPRN PRN Discharge Statement: "Patient was advised to return to the ER or call 911 if any headaches, dizziness, shortness of breath, chest pain, abdominal pain, bleeding, fevers, or worsening of medical condition. Patient was counseled about treatment plan, medications, possible side effects, patientverbalized understanding. All questions were answered to the best of my ability. This discharge took greater then 30 minutes in planning, reviewing documentation, counseling the patient, and discussing with other team members." ASSESSMENT ASSESSMENT Assessment Sepsis due to posterior perianal abscess Acute urinary retention Date of Service: Jun 13, 2025 Billing Provider: DALIA GARCIA MD Common Visit Codes: 75812-KYB/OBS DISCH DAY >30min MICHELE HOUSTON Jun 13, 2025 15:23 DALIA GARCIA MD Jun 13, 2025 22:26
[2025-06-13 16:55] VITALS: BP 113/80; PULSE 70; RESP 16; TEMP 97.8; O2SAT 94
[2025-06-14] MEDS ORDERED: METR-344 PO (18:41)
== END 2025-06-13 18:00 | disposition home or self-care (01) | DRG 720 ==
LOC: ER 17:26 → OVERFLOW 22:38 → WEST WING 06-08 18:46
PROVIDERS: ADMIT Internal Medicine; ATTEND Internal Medicine
PROC: 0H99XZZ Drainage of Perineum Skin, External Approach (ICD-10-PCS; principal; 2025-06-10 10:55)
DX: A41.9 Sepsis, unspecified organism (principal); K61.4 Intrasphincteric abscess; K61.0 Anal abscess; Z68.35 Body mass index [BMI] 35.0-35.9, adult; K59.00 Constipation, unspecified; K21.9 Gastro-esophageal reflux disease without esophagitis; E78.5 Hyperlipidemia, unspecified; R33.9 Retention of urine, unspecified; Z87.891 Personal history of nicotine dependence
CPT/HCPCS: 36415; 71045; 74177; 80048; 80053; 80076; 80307; 81001; 83605; 83880; 85007; 85025; 85027; 85610; 85730; 86141; 86850; 86900; 86901; 87040; 87070; 87075; 87076; 87077; 87186; 87205; 96365; 96375; G0378; J0131; J0690; J1100; J1885; J2003; J2405; J2470; J2543; J2704; J3490